=== PATIENT | male | born 1960 | race Caucasian/White ===

== ENCOUNTER 2018-04-11 18:58 | Emergency (ER) | payer SELFPAY ==
[2018-04-11 19:26] VITALS: TEMP 98.3; BMI 28.5
--- NOTE | 2018-04-11 19:57 | PDOC ---
History of Present Illness - General Chief Complaint: Blood Pressure Problem Stated Complaint: HYPERTENSION Time Seen by Provider: 04/11/18 19:13 - History of Present Illness Initial Comments: 04/11/18 19:52 57 yo M with h/o anxiety, HTN chronic back painEtoH dependence ( recent completion of detox for alcoholism at [facility]) in rehab transferred to [facility] today. Pt has history of . Patient has not taken Enalapril 20mg for BP x 2 days. Patient BP reported to be 220/120 at outside rehab facility. Denies F/C, N/V, CP, SOB, abdominal pain, diarrhea, constipation, urinary complaints, weakness, lightheadedness, sensory changes. PMHx: as noted above ROS: as noted above SHx: Reports intermittent "off and on" alcohol use for two years. States that he typically drinkes 12 oz vodka with last drink Monday (04/09/18) at 1400. Denies tobacco or IVDA. Allergies: NKDA Past History - Past Medical History Allergies/Adverse Reactions: Allergies Allergy/AdvReac Type Severity Reaction Status Date / Time No Known Allergies Allergy Verified 04/11/18 19:03 CVA: No COPD: No HTN: Yes - Suicide/Smoking/Psychosocial Hx Smoking History: Never smoked Have you smoked in the past 12 months: No Information on smoking cessation initiated: No Hx Alcohol Use: Yes Drug/Substance Use Hx: No Substance Use Type: Alcohol Review of Systems - Review of Systems Comments:: 04/11/18 19:54 GENERAL/CONSTITUTIONAL: No fever or chills. No weakness. HEAD, EYES, EARS, NOSE AND THROAT: No change in vision. No ear pain or discharge. No sore throat. CARDIOVASCULAR: No chest pain or shortness of breath RESPIRATORY: No cough, wheezing, or hemoptysis. GASTROINTESTINAL: No nausea, vomiting, diarrhea or constipation. GENITOURINARY: No dysuria, frequency, or change in urination. MUSCULOSKELETAL: No joint or muscle swelling or pain. No neck or back pain. SKIN: No rash NEUROLOGIC: No headache, vertigo, loss of consciousness, or change in strength/ sensation. ENDOCRINE: No increased thirst. No abnormal weight change HEMATOLOGIC/LYMPHATIC: No anemia, easy bleeding, or history of blood clots. ALLERGIC/IMMUNOLOGIC: No hives or skin allergy. *Physical Exam - Vital Signs Last Vital Signs Temp Pulse Resp BP Pulse Ox 98.3 F 95 H 16 190/127 98 04/11/18 19:03 04/11/18 20:12 04/11/18 20:10 04/11/18 20:11 04/11/18 20:12 - Physical Exam Comments: 04/11/18 19:54 GENERAL: Awake, alert, and fully oriented, in no acute distress HEAD: No signs of trauma, normocephalic, atraumatic EYES: PERRLA, EOMI, sclera anicteric, conjunctiva clear ENT: Auricles normal inspection, hearing grossly normal, nares patent, oropharynx clear without exudates. Moist mucosa NECK: Normal ROM, supple, no lymphadenopathy, JVD, or masses LUNGS: Diffuse scant exp rhonci. HEART: Regular rate and rhythm, normal S1 and S2, no murmurs, rubs or gallops, peripheral pulses normal and equal bilaterally. ABDOMEN: Soft, nontender, normoactive bowel sounds. No guarding, no rebound. No masses EXTREMITIES : Normal inspection, Normal range of motion, no edema. No clubbing or cyanosis. NEUROLOGICAL: Cranial nerves II through XII grossly intact. Normal speech, normal gait, no focal sensorimotor deficits SKIN: Warm, Dry, normal turgor, no rashes or lesions noted ED Treatment Course - LABORATORY CBC & Chemistry Diagram: 04/11/18 20:30 04/11/18 20:30 - ADDITIONAL ORDERS Additional order review: Laboratory Results 04/11/18 04/11/18 04/11/18 20:30 20:30 20:30 PT with INR INR Sodium 140 Potassium 3.5 Chloride 103 Carbon Dioxide 28 Anion Gap 9 BUN 13 Creatinine 1.0 Creat Clearance w eGFR > 60 Random Glucose 93 Calcium 8.6 Total Bilirubin 0.3 AST 49 H ALT 40 Alkaline Phosphatase 108 Creatine Kinase Troponin I Total Protein 7.8 Albumin 4.3 Urine Color Straw Urine Appearance Clear Urine pH 6.0 Ur Specific [place] 1.014 Urine Protein Negative Urine Glucose (UA) 1+ H Urine Ketones Negative Urine Blood Negative Urine Nitrite Negative Urine Bilirubin Negative Urine Urobilinogen Negative Ur Leukocyte Esterase Negative Opiates Screen Negative Methadone Screen Negative Barbiturate Screen Negative Phencyclidine Screen Negative Ur Amphetamines Screen Negative MDMA (Ecstasy) Screen Negative Benzodiazepines Screen Positive Cocaine Screen Positive U Marijuana (THC) Screen Negative 04/11/18 04/11/18 20:30 20:30 PT with INR 11.90 INR 1.05 Sodium Potassium Chloride Carbon Dioxide Anion Gap BUN Creatinine Creat Clearance w eGFR Random Glucose Calcium Total Bilirubin AST ALT Alkaline Phosphatase Creatine Kinase 134 Troponin I < 0.02 Total Protein Albumin Urine Color Urine Appearance Urine pH Ur Specific [place] Urine Protein Urine Glucose (UA) Urine Ketones Urine Blood Urine Nitrite Urine Bilirubin Urine Urobilinogen Ur Leukocyte Esterase Opiates Screen Methadone Screen Barbiturate Screen Phencyclidine Screen Ur Amphetamines Screen MDMA (Ecstasy) Screen Benzodiazepines Screen Cocaine Screen U Marijuana (THC) Screen 04/11/18 20:30 RBC 4.10 MCV 93.8 MCHC 34.6 RDW 14.1 MPV 7.4 L Neutrophils % 72.7 Lymphocytes % 16.3 Monocytes % 9.4 Eosinophils % 0.8 Basophils % 0.8 - RADIOLOGY Radiology Studies Ordered: Category Date Time Status CXRPORT [CHEST X-RAY PORTABLE*] [RAD] Stat Radiology 04/11/18 20:03 Completed - Medications Given in the ED: ED Medications Discontinued Medications Generic Name Dose Route Start Last Admin Trade Name Freq PRN Reason Stop Dose Admin Diazepam 10 mg 04/11/18 21:26 04/11/18 21:33 Valium - PO 04/11/18 21:27 10 mg ONCE ONE Administration Enalapril Maleate 20 mg 04/11/18 20:14 04/11/18 20:48 Vasotec - PO 04/11/18 20:15 20 mg ONCE ONE Administration Labetalol HCl 10 mg 04/11/18 20:29 04/11/18 20:41 Normodyne Injection - IVPUSH 04/11/18 20:30 10 mg ONCE ONE Administration Labetalol HCl 10 mg 04/11/18 20:40 04/11/18 20:49 Normodyne Injection - IVPUSH 04/11/18 20:41 Not Given ONCE ONE Medical Decision Making - Medical Decision Making 04/11/18 20:15 57 yo M with h/o anxiety, HTN chronic back painEtoH dependence ( recent completion of detox for alcoholism at [facility]) in rehab transferred to [facility] for report of BP 220/120 at outside rehab facility. BP now 164/132, AF. Patient with no complaints. Low suspicion of end organ damage/dysfunction. Low suspicion of HTN emergency. Will assess for electrolyte abnml, toxic or metabolic derangements,acid-base disturbances, or underlying infection. ED Course: 04/11/18 21:27 CBC,CMP, UA: Unremarkable Labetalol 10 mg SBP continually 190's. Enalapril 20 mg Valium 10 mg PO 04/11/18 22:07 EKG: Sinus tachycardia with minimal voltage criteria. Absent SAVAGE, SRD, or TWI 04/11/18 22:21 Cocaine and Benzo +. *DC/Admit/Observation/Transfer Diagnosis at time of Disposition: Asymptomatic hypertension - Discharge Dispostion Condition at time of disposition: Stable Decision to Admit order: No - Referrals - Patient Instructions Printed Discharge Instructions: DI for High Blood Pressure Additional Instructions: Please return to the emergency department with any new or worsening symptoms or concerns. Please follow up with your primary care physician within 72 hours. - Post Discharge Activity - Attestations Physician Attestion: 04/11/18 19:57 I attest to the information provided in this note.
--- NOTE | 2018-04-11 20:06 | PDOC ---
Attending Attestation - HPI HPI: 04/11/18 20:21 The patient is a 57 year old male, with a significant past medical history of HTN, anxiety, chronic back pain and ETOH dependence (recent completion of detox for alcoholism at [facility]) in rehab transferred to [facility] today, who presents to the emergency department complaining of elevated blood pressure. At rehab facility blood pressure was 220/120. He notes that he has not taken his Enalapril 20mg for the past couple of days. The patient denies chest pain, shortness of breath, headache or dizziness. Denies fever, chills, nausea, vomiting, diarrhea and constipation. Denies dysuria, frequency, urgency and hematuria. Allergies: None Past surgical history: None reported Social History: Alcohol abuse (12 oz vodkda daily, last drink 04/09/18) - Physicial Exam PE: 04/11/18 20:21 Constitutional: (+) Anxious. Awake, alert, oriented. No acute distress. Head: Normocephalic. Atraumatic Eyes: PERRL. EOMI. Conjunctivae are not pale. ENT: Mucous membranes are moist and intact. Posterior pharynx without exudates or erythema. Uvula midline. Neck: Supple. Full ROM. No lymphadenopathy. Cardiovascular: (+) Hypertensive. Regular rate. Regular rhythm. S1, S2 regular. Distal pulses are 2+ and symmetric. Pulmonary/Chest: No evidence of respiratory distress. Abdominal: Soft and non-distended. There is no tenderness. No rebound, guarding or rigidity. No organomegaly. No palpable masses. Good bowel sounds. Back: No CVA tenderness. Musculoskeletal: No edema. No cyanosis. No clubbing. Full range of motion in all extremities. Nocalf tenderness. Radial/pedal pulses are intact and 2+ bilaterally Skin: Skin is warm and dry. No petechiae. No purpura. Neurological: Alert and oriented to person, place, and time. Cranial nerves II -XII are grossly intact. Normal speech. Strength is grossly symmetric. No sensory deficits. Psychiatric: Good eye contact. Normal interaction, affect and behavior. <Connor Aguirre - Last Filed: 04/11/18 21:31> - Resident Resident Name: Benedict Ching - ED Attending Attestation I have performed the following: I have examined & evaluated the patient, The case was reviewed & discussed with the resident, I agree w/resident's findings & plan, Exceptions are as noted - Medical Decision Making 04/11/18 20:06 I, Dr. Loli Simeon, DO, attest that this document has been prepared under my direction and personally reviewed by me in its entirety. I further attest, that it accurately reflects all work, treatment, procedures and medical decision -making performed by me. 04/11/18 21:47 a/p: 57yo male sent from [facility] for elevated BP -pt admits to feeling anxious -finished detox at [facility] and transferred to [facility] for rehab -denies feeling tremulous, states he did not receive his BP meds at [facility] for the last 3 days -states he takes enalapril orally -denies drug use, denies cocaine use -denies xavier, blurred vision, neck pain, cp/sob, no abd pain, no paresthesias, no weakness, no numbness/tingling -will check labs, ekg -will give IV labetalol, oral enalapril, will monitor pressure and reassess 04/11/18 22:21 drug screen shows +cocaine pt still is denying cocaine use will no longer give beta blockers 04/11/18 23:42 repeat bp 174/93 pt sleeping will monitor another hour, if bp continues to lower will d/c back to rehab, if bp elevates again will keep in obs for BP control 04/12/18 01:53 repeat BP 154/94 labs reviewed stable for d/c back to rehab <Loli Simeon - Last Filed: 04/12/18 01:53>
[2018-04-11] MEDS ORDERED: ENALAPRIL MALEATE 10 MG TABLET (FP) PO ONE (20:14)
[2018-04-11] MEDS ORDERED: LABETALOL HCL 5 MG/1 ML (100MG/20 ML VIAL) IVPUSH ONE ×2 (20:29→20:40)
[2018-04-11] MEDS ORDERED: LABETALOL HCL 5 MG/1 ML (200MG/40ML VIAL) IVPB ONE (20:31)
[2018-04-11 20:41] LABS: BASO % 0.8 % (0-2.0); EOS % 0.8 % (0-4.5); HEMATOCRIT 38.4 % (35.4-49); HEMOGLOBIN 13.3 GM/dL (11.7-16.9); LYMPH % 16.3 % (8-40); MCH 32.5 pg (25.7-33.7); MCHC 34.6 g/dl (32.0-35.9); MEAN CELL VOLUME 93.8 fl (80-96); MEAN PLT VOLUME 7.4 fl (7.5-11.1); MONO % 9.4 % (3.8-10.2); NEUT % 72.7 % (42.8-82.8); PLATELET COUNT 222 K/MM3 (134-434); RDW 14.1 % (11.9-15.9)
[2018-04-11 20:42] LABS: URINE APPEARANCE CLEAR; URINE BILIRUBIN NEGATIVE (<2.0 mg/dL); URINE BLOOD NEGATIVE (NEGATIVE); URINE COLOR STRAW; URINE GLUCOSE (UA) 1+ (NEGATIVE); URINE KETONE NEGATIVE (NEGATIVE); URINE LEUK ESTERASE NEGATIVE (NEGATIVE); URINE NITRITE NEGATIVE (NEGATIVE); URINE PROTEIN NEGATIVE (NEGATIVE); URINE UROBILINOGEN NEGATIVE mg/dL (0.2-1.0)
[2018-04-11] MEDS ORDERED: ENALAPRIL MALEATE 5 MG TABLET (FP) ONE (20:42)
[2018-04-11 21:08] LABS: INR 1.05 (0.82-1.09); PROTHROMBIN TIME (PATIENT) 11.9 SEC (9.7-13.0)
[2018-04-11 21:18] LABS: ALBUMIN 4.3 g/dl (3.4-5.0); ANION GAP 9 (8-16); BILIRUBIN,TOTAL 0.3 mg/dL (0.2-1.0); BLOOD UREA NITROGEN 13 mg/dL (7-18); CALCIUM 8.6 mg/dL (8.5-10.1); CHLORIDE 103 mmol/L (98-107); CO2 28 mmol/L (21-32); GLUCOSE,RANDOM 93 mg/dL (74-106); POTASSIUM 3.5 mmol/L (3.5-5.1); SGOT/AST 49 U/L (15-37); SGPT/ALT 40 U/L (12-78); SODIUM 140 mmol/L (136-145); TOT PROT 7.8 g/dl (6.4-8.2)
[2018-04-11 21:19] LABS: ALK PHOS 108 U/L (45-117)
[2018-04-11] MEDS ORDERED: diazePAM 5 MG TABLET PO ONE (21:26)
[2018-04-11] MEDS ORDERED: diazePAM 5 MG TABLET ONE (21:28)
[2018-04-11 22:14] LABS: URINE AMPHETAMINES NEGATIVE ng/ml (CUTOFF=500); URINE BARBITURATES NEGATIVE ng/ml (CUTOFF=200)
[2018-04-11] MEDS ORDERED: amLODIPine BESYLATE 5 MG TABLET (FP) ONE (22:14)
[2018-04-11 22:15] LABS: METHADONE, UR NEGATIVE ng/ml (CUTOFF=300); OPIATES, URI NEGATIVE ng/ml (CUTOFF=300); PHENCYCLIDINE,URINE NEGATIVE ng/ml (CUTOFF=25)
[2018-04-11 22:16] LABS: COCAINE, UR POSITIVE ng/ml (CUTOFF=300); URINE BENZODIAZEPINES POSITIVE ng/ml (CUTOFF=200)
[2018-04-11] MEDS ORDERED: amLODIPine BESYLATE 5 MG TABLET (FP) PO ONE (22:22)
[2018-04-11] MEDS ORDERED: hydrALAZINE HCL 20 MG/ML VIAL IVPUSH ONE (22:23)
[2018-04-11] MEDS ORDERED: hydrALAZINE HCL 20 MG/ML VIAL ONE (22:26)
[2018-04-12 00:47] VITALS: BP 169/94; PULSE 96
--- NOTE | 2018-04-12 01:14 | PDOC ---
History of Present Illness - General Chief Complaint: Blood Pressure Problem Stated Complaint: HYPERTENSION Time Seen by Provider: 04/11/18 19:13 Past History - Past Medical History Allergies/Adverse Reactions: Allergies Allergy/AdvReac Type Severity Reaction Status Date / Time No Known Allergies Allergy Verified 04/11/18 19:03 CVA: No COPD: No HTN: Yes - Suicide/Smoking/Psychosocial Hx Smoking History: Never smoked Have you smoked in the past 12 months: No Information on smoking cessation initiated: No Hx Alcohol Use: Yes Drug/Substance Use Hx: No Substance Use Type: Alcohol *Physical Exam - Vital Signs Last Vital Signs Temp Pulse Resp BP Pulse Ox 98.3 F 96 H 16 169/94 100 04/11/18 19:03 04/12/18 00:46 04/12/18 00:46 04/12/18 00:46 04/12/18 00:46 ED Treatment Course - LABORATORY CBC & Chemistry Diagram: 04/11/18 20:30 04/11/18 20:30 - ADDITIONAL ORDERS Additional order review: Laboratory Results 04/11/18 04/11/18 04/11/18 20:30 20:30 20:30 PT with INR INR Sodium 140 Potassium 3.5 Chloride 103 Carbon Dioxide 28 Anion Gap 9 BUN 13 Creatinine 1.0 Creat Clearance w eGFR > 60 Random Glucose 93 Calcium 8.6 Total Bilirubin 0.3 AST 49 H ALT 40 Alkaline Phosphatase 108 Creatine Kinase Troponin I Total Protein 7.8 Albumin 4.3 Urine Color Straw Urine Appearance Clear Urine pH 6.0 Ur Specific [place] 1.014 Urine Protein Negative Urine Glucose (UA) 1+ H Urine Ketones Negative Urine Blood Negative Urine Nitrite Negative Urine Bilirubin Negative Urine Urobilinogen Negative Ur Leukocyte Esterase Negative Opiates Screen Negative Methadone Screen Negative Barbiturate Screen Negative Phencyclidine Screen Negative Ur Amphetamines Screen Negative MDMA (Ecstasy) Screen Negative Benzodiazepines Screen Positive Cocaine Screen Positive U Marijuana (THC) Screen Negative 04/11/18 04/11/18 20:30 20:30 PT with INR 11.90 INR 1.05 Sodium Potassium Chloride Carbon Dioxide Anion Gap BUN Creatinine Creat Clearance w eGFR Random Glucose Calcium Total Bilirubin AST ALT Alkaline Phosphatase Creatine Kinase 134 Troponin I < 0.02 Total Protein Albumin Urine Color Urine Appearance Urine pH Ur Specific [place] Urine Protein Urine Glucose (UA) Urine Ketones Urine Blood Urine Nitrite Urine Bilirubin Urine Urobilinogen Ur Leukocyte Esterase Opiates Screen Methadone Screen Barbiturate Screen Phencyclidine Screen Ur Amphetamines Screen MDMA (Ecstasy) Screen Benzodiazepines Screen Cocaine Screen U Marijuana (THC) Screen 04/11/18 20:30 RBC 4.10 MCV 93.8 MCHC 34.6 RDW 14.1 MPV 7.4 L Neutrophils % 72.7 Lymphocytes % 16.3 Monocytes % 9.4 Eosinophils % 0.8 Basophils % 0.8 - Medications Given in the ED: ED Medications Discontinued Medications Generic Name Dose Route Start Last Admin Trade Name Sincere PRN Reason Stop Dose Admin Amlodipine Besylate 5 mg 04/11/18 22:22 04/11/18 22:23 Norvasc - PO 04/11/18 22:23 5 mg ONCE ONE Administration Diazepam 10 mg 04/11/18 21:26 04/11/18 21:33 Valium - PO 04/11/18 21:27 10 mg ONCE ONE Administration Enalapril Maleate 20 mg 04/11/18 20:14 04/11/18 20:48 Vasotec - PO 04/11/18 20:15 20 mg ONCE ONE Administration Hydralazine HCl 10 mg 04/11/18 22:23 04/11/18 22:35 Apresoline Injection - IVPUSH 04/11/18 22:24 10 mg ONCE ONE Administration Labetalol HCl 10 mg 04/11/18 20:29 04/11/18 20:41 Normodyne Injection - IVPUSH 04/11/18 20:30 10 mg ONCE ONE Administration Labetalol HCl 10 mg 04/11/18 20:40 04/11/18 20:49 Normodyne Injection - IVPUSH 04/11/18 20:41 Not Given ONCE ONE *DC/Admit/Observation/Transfer Diagnosis at time of Disposition: Asymptomatic hypertension - Discharge Dispostion Disposition: HOME Condition at time of disposition: Stable Decision to Admit order: No - Referrals - Patient Instructions Printed Discharge Instructions: DI for High Blood Pressure Additional Instructions: Please return to the emergency department with any new or worsening symptoms or concerns. Please follow up with your primary care physician within 72 hours. Continue your rehab treatment at [facility]. - Post Discharge Activity
--- NOTE | 2018-04-12 11:27 | EKG ---
Test Reason : Blood Pressure : / mmHG Vent. Rate : 101 BPM Atrial Rate : 101 BPM P-R Int : 176 ms QRS Dur : 090 ms QT Int : 386 ms P-R-T Axes : 022 -19 -04 degrees QTc Int : 500 ms SINUS TACHYCARDIA MINIMAL VOLTAGE CRITERIA FOR LVH, MAY BE NORMAL VARIANT BORDERLINE ECG NO PREVIOUS ECGS AVAILABLE Confirmed by MARTÍN GARZON MD ([id number]) on 04/12/2018 11:26:40 AM Referred By: Confirmed By:MARTÍN GARZON MD
== END 2018-04-12 01:26 | disposition home or self-care (01) ==
LOC: JER 18:58
PROC: 3E033GC Introduction of Other Therapeutic Substance into Peripheral Vein, Percutaneous Approach (ICD-10-PCS; principal; 2018-04-11)
DX: I10 Essential (primary) hypertension (principal)
CPT/HCPCS: 36415; 71045-TC-FY; 80053; 80307; 81003; 82550; 84484; 85025; 85610; 93005; 93010; 99282-25

== ENCOUNTER 2018-04-12 02:16 | Inpatient (IN) | payer OTHER ==
--- NOTE | 2018-04-12 02:22 | HP ---
Admission [facility] Chief Complaint: SEEKING REHAB TO MAINTAIN SOBRIETY Allergies/Adverse Reactions: Allergies Allergy/AdvReac Type Severity Reaction Status Date / Time No Known Allergies Allergy Verified 04/11/18 19:03 History of Present Illness: 57 Y.O. MALE WITH HX/ O ALCOHOLISM. Patient presents for rehab services after completing detox for alcoholism at [facility]. Transferred to [facility] yesterday for asymptomatic htn. Her has been stabilized and medically cleared. Pt has history of anxiety, HTN and chronic back pain, rheumatoid arthritis, psoriatic arthritis, gout.b/p presently 164/104 p-99 Patient denies chest pain, SOB, headache and dizziness. client states he is on Enalapril 20mg daily but has not taken it in days. longest clean time 7 years. denies hx/o seizures, dt,and a/v but has had black outs. utox + oxy and faina client adamantly denies use labs from [facility] noted cxr noted - ADDITIONAL ORDERS Additional order review: Laboratory Results 04/11/18 04/11/18 04/11/18 20:30 20:30 20:30 PT with INR INR Sodium 140 Potassium 3.5 Chloride 103 Carbon Dioxide 28 Anion Gap 9 BUN 13 Creatinine 1.0 Creat Clearance w eGFR > 60 Random Glucose 93 Calcium 8.6 Total Bilirubin 0.3 AST 49 H ALT 40 Alkaline Phosphatase 108 Creatine Kinase Troponin I Total Protein 7.8 Albumin 4.3 Urine Color Straw Urine Appearance Clear Urine pH 6.0 Ur Specific [place] 1.014 Urine Protein Negative Urine Glucose (UA) 1+ H Urine Ketones Negative Urine Blood Negative Urine Nitrite Negative Urine Bilirubin Negative Urine Urobilinogen Negative Ur Leukocyte Esterase Negative Opiates Screen Negative Methadone Screen Negative Barbiturate Screen Negative Phencyclidine Screen Negative Ur Amphetamines Screen Negative MDMA (Ecstasy) Screen Negative Benzodiazepines Screen Positive Cocaine Screen Positive U Marijuana (THC) Screen Negative 04/11/18 04/11/18 20:30 20:30 PT with INR 11.90 INR 1.05 Sodium Potassium Chloride Carbon Dioxide Anion Gap BUN Creatinine Creat Clearance w eGFR Random Glucose Calcium Total Bilirubin AST ALT Alkaline Phosphatase Creatine Kinase 134 Troponin I < 0.02 Total Protein Albumin Urine Color Urine Appearance Urine pH Ur Specific [place] Urine Protein Urine Glucose (UA) Urine Ketones Urine Blood Urine Nitrite Urine Bilirubin Urine Urobilinogen Ur Leukocyte Esterase Opiates Screen Methadone Screen Barbiturate Screen Phencyclidine Screen Ur Amphetamines Screen MDMA (Ecstasy) Screen Benzodiazepines Screen Cocaine Screen U Marijuana (THC) Screen 04/11/18 20:30 RBC 4.10 MCV 93.8 MCHC 34.6 RDW 14.1 MPV 7.4 L Neutrophils % 72.7 Lymphocytes % 16.3 Monocytes % 9.4 Eosinophils % 0.8 Basophils % 0.8 - Medications Given in the ED: ED Medications Discontinued Medications Generic Name Dose Route Start Last Admin Trade Name Sincere PRN Reason Stop Dose Admin Amlodipine Besylate 5 mg 04/11/18 22:22 04/11/18 22:23 Norvasc - PO 04/11/18 22:23 5 mg ONCE ONE Administration Diazepam 10 mg 04/11/18 21:26 04/11/18 21:33 Valium - PO 04/11/18 21:27 10 mg ONCE ONE Administration Enalapril Maleate 20 mg 04/11/18 20:14 04/11/18 20:48 Vasotec - PO 04/11/18 20:15 20 mg ONCE ONE Administration Hydralazine HCl 10 mg 04/11/18 22:23 04/11/18 22:35 Apresoline Injection - IVPUSH 04/11/18 22:24 10 mg ONCE ONE Administration Labetalol HCl 10 mg 04/11/18 20:29 04/11/18 20:41 Normodyne Injection - IVPUSH 04/11/18 20:30 10 mg ONCE ONE Administration Labetalol HCl 10 mg 04/11/18 20:40 04/11/18 20:49 Normodyne Injection - IVPUSH 04/11/18 20:41 Not Given ONCE ONE *DC/Admit/Observation/Transfer Diagnosis at time of Disposition: Asymptomatic hypertension - Discharge Dispostion Disposition: HOME Condition at time of disposition: Stable Decision to Admit order: No - Referrals - Patient Instructions Printed Discharge Instructions: DI for High Blood Pressure Additional Instructions: Please return to the emergency department with any new or worsening symptoms or concerns. Please follow up with your primary care physician within 72 hours. Continue your rehab treatment at [facility]. - Post Discharge Activity Exam Limitations: No Limitations, Other (poor historian. giving conflicting information) - Ebola screening Have you traveled outside of the country in the last 21 days: No Have you had contact with anyone from an Ebola affected area: No Have you been sick,other than usual withdrawal symptoms: No Do you have a fever: No - Review of Systems Constitutional: No Symptoms Reported EENT: reports: No Symptoms Reported Respiratory: reports: No Symptoms reported Cardiac: reports: No Symptoms Reported GI: reports: No Symptoms Reported : reports: No Symptoms Reported Musculoskeletal: reports: Joint Pain Integumentary: reports: No Symptoms Reported Neuro: reports: No Symptoms reported Endocrine: reports: No Symptoms Reported Hematology: reports: No Symptoms Reported Psychiatric: reports: Anxious Other Systems: Reviewed and Negative Patient History - Patient Medical History Hx Anemia: No Hx Asthma: No Hx Chronic Obstructive Pulmonary Disease (COPD): No Hx Cancer: No Hx Cardiac Disorders: No Hx Congestive Heart Failure: No Hx Hypertension: Yes Hx Hypercholesterolemia: No Hx Pacemaker: No HX Cerebrovascular Accident: No Hx Seizures: No Hx Dementia: No Hx Diabetes: No Hx Gastrointestinal Disorders: No Hx Liver Disease: No Hx Genitourinary Disorders: No Hx Sexually Transmitted Disorders: No Hx Renal Disease (ESRD): No Hx Thyroid Disease: No Hx Human Immunodeficiency Virus (HIV): No Hx Hepatitis C: No Hx Depression: Yes Hx Suicide Attempt: No Hx Bipolar Disorder: No Hx Schizophrenia: No Other Medical History: anxiety, gout, psoriaTIC ARTHRITIS - Patient Surgical History Past Surgical History: No - PPD History Previous Implant?: Yes Documented Results: Negative w/o proof Implanted On Prior [facility] Admission?: No Results: neg cxr noted PPD to be Administered?: No - Smoking Cessation Smoking history: Never smoked Have you smoked in the past 12 months: No Hx Chewing Tobacco Use: No Initiated information on smoking cessation: No - Substance & Tx. History Hx Alcohol Use: Yes Substance Use Type: Alcohol, Cocaine (denies) Hx Substance Use Treatment: Yes ([facility]) - Substances Abused VODKA Route: Oral Frequency: 3-6 times per week Amount used: 8-12 oz Age of first use: 55 Date of Last Use: 04/09/18 Family Disease History - Family Disease History Family History: Denies Admission Physical Exam [facility] - Physical General Appearance: Yes: Appropriately Dressed, Anxious, Other (talkative) HEENTM: Yes: EOMI, Normocephalic, Normal Voice, SHANELLE, Pharynx Normal Respiratory: Yes: Chest Non-Tender, Lungs Clear, Normal Breath Sounds, No Respiratory Distress, No Accessory Muscle Use Neck: Yes: No masses,lesions,Nodules, Supple, Trachea in good position Breast: Yes: Breast Exam Deferred Cardiology: Yes: Regular Rhythm, Regular Rate, S1, S2 Abdominal: Yes: Normal Bowel Sounds, Non Tender, Flat, Soft Genitourinary: Yes: Within Normal Limits Back: Yes: Normal Inspection Musculoskeletal: Yes: Within Normal Limits Extremities: Yes: Normal Capillary Refill, Normal Range of Motion, Non-Tender Neurological: Yes: Alert, Motor Strength 5/5 Integumentary: Yes: Normal Color, Dry, Warm Lymphatic: Yes: Within Normal Limits - Diagnostic (1) Uncomplicated alcohol dependence Current Visit: Yes Status: Chronic (2) HTN (hypertension) Current Visit: Yes Status: Chronic (3) History of rheumatoid arthritis Current Visit: Yes Status: Chronic (4) History of gout Current Visit: Yes Status: Chronic (5) History of psoriatic arthritis Current Visit: Yes Status: Chronic (6) Chronic back pain Current Visit: Yes Status: Chronic (7) History of depression Current Visit: Yes Status: Chronic Cleared for Admission [facility] - Detox or Rehab Detox Regimen/Protocol: Not Applicable Claeared for Rehab Admission: Yes [facility] Breath Alcohol Content Breath Alcohol Content: 0 Vital Signs - Vital Signs Vital Signs Refused: No Temperature: 97.5 F Temperature Source: Oral Pulse Rate: 99 Respiratory Rate: 20 Blood Pressure: 164/104 BP Location: Left Arm Blood Pressure Position: Sitting - Height Height: 6 ft - Weight Weight: 91.172 kg Weight Measurement Method: Standing Scale Body Mass Index (BMI): 27.2 - Bowel Function Bowel Movement: No Urine Drug Screen - Test Device Lot Number: [id number] Expiration Date: 01/03/20 - Control Is Test Valid: Yes - Results Drug Screen Negative: No Urine Drug Screen Results: FAINA-Cocaine, BZO-Benzodiazepines, TCA-Tricyclic Antidepress, OXY-Oxycodone Inpatient Rehab Admission - Initial Determination Are CD services needed?: Yes Free of communicable disease: Yes Not in need of hospitalization: Yes - Rehab Admission Criteria Previous failed treatment: Yes Poor recovery environment: Yes Comorbidities: Yes Lacks judgement: Yes Patient is meeting Inpatient Rehab admission criteria:: Yes
[2018-04-12 02:29] VITALS: BMI 27.2
[2018-04-12] MEDS ORDERED: P-EPHED 60MG/TRIPROLIDI 2.5MG TABLET PO PRN (02:53)
[2018-04-12] MEDS ORDERED: MAGNESIUM CITRATE 300 ML BOTTLE PO PRN (02:53)
[2018-04-12] MEDS ORDERED: ACETAMINOPHEN 325 MG TABLET (FP) PO PRN (02:53)
[2018-04-12] MEDS ORDERED: LOPERAMIDE HCL 2 MG CAPSULE PO PRN (02:53)
[2018-04-12] MEDS ORDERED: guaiFENesin/D-METHORPHAN HB 10 ML UNIT-DOSE CUPS PO PRN (02:53)
[2018-04-12] MEDS ORDERED: MAGNESIUM HYDROX 2400MG/30ML ORAL SUSPENSION 30 ML CUP PO PRN (02:53)
[2018-04-12] MEDS: hydrOXYzine PAMOATE 50 MG CAPSULE (FP) PO PRN ×2 (03:00→21:37)
[2018-04-12] MEDS ORDERED: cloNIDine HCL 0.1 MG TABLET PO ONE (03:33)
--- NOTE | 2018-04-12 07:03 | PN ---
S Progress Note Note: late entry clonidine 0.2 mg given for asymptomatic elevated b/p Last Vital Signs Temp Pulse Resp BP Pulse Ox 98.2 F 102 H 18 175/134 04/12/18 03:55 04/12/18 03:55 04/12/18 03:55 04/12/18 03:55 repeat b/p this morning 131/83 p-77 restarted on home med enalapril; first dose 10am
[2018-04-12] MEDS: ENALAPRIL MALEATE 10 MG TABLET (FP) PO SCH (09:54)
[2018-04-12] MEDS: PRENATAL VITAMINS W/ FOLIC ACID TABLET (FP) PO SCH (09:56)
--- NOTE | 2018-04-12 11:23 | HP ---
Psychiatrist Admission - Data Date of interview: 04/12/18 Admission source: [facility] detox Identifying data: This is the first [facility] inpatient rehabilitation admission for this 57 years old male, father of 3 children, unemployed on SSD, domiciled Medical History: Significant for hypertension, chronic back pain, rheumatoid arthritis, psoriatic arthritis , gout. Psychiatric History: Denies history of previous psychiatric treatment Physical/Sexual Abuse/Trauma History: Denies history of emotional, physical or sexual abuse as well as DV relationship. No service Additional Comment: reports history one previous misdemeanor arrests years ago on charges of [employer] Vital Signs: Vital Signs - 24 hr 04/12/18 04/12/18 04/12/18 03:20 03:55 07:24 Temperature 97.5 F L 98.2 F 98.7 F Pulse Rate 99 H 102 H 77 Respiratory 20 18 18 Rate Blood Pressure 164/104 175/134 131/83 Allergies/Adverse Reactions: Allergies Allergy/AdvReac Type Severity Reaction Status Date / Time No Known Allergies Allergy Verified 04/11/18 19:03 Date of last physical exam: 04/12/18 Concur with the findings of this exam: Yes - Substance Abuse/Tx History Hx Alcohol Use: Yes Hx Substance Use: No Substance Use Type: Alcohol (Started drinking alcohol at age 55, consumes 8x 12oz of vodka 3-6 times weekly. Last drank on 04/09/18) Hx Substance Use Treatment: Yes (one recent inpt detox [facility]. First time inpt rehab) Mental Status Exam - Mental Status Exam Alert and Oriented to: Time, Place, Person Cognitive Function: Fair Patient Appearance: Well Groomed Mood: Anxious Affect: Appropriate Patient Behavior: Cooperative Speech Pattern: Clear Voice Loudness: Normal Thought Process: Intact, Goal Oriented Thought Disorder: Not Present Hallucinations: Denies Suicidal Ideation: Denies Homicidal Ideation: Denies Insight/Judgement: Fair Sleep: Poorly Appetite: Good Muscle strength/Tone: Normal Gait/Station: Normal Psychiatric Findings - Problem List ([place] 1, 2,3) (1) Alcohol dependence Current Visit: Yes Status: Acute (2) Alcohol-induced sleep disorder Current Visit: Yes Status: Acute (3) Alcohol-induced anxiety disorder Current Visit: Yes Status: Acute (4) Chronic back pain Current Visit: Yes Status: Chronic (5) HTN (hypertension) Current Visit: Yes Status: Chronic (6) History of gout Current Visit: Yes Status: Chronic (7) History of psoriatic arthritis Current Visit: Yes Status: Chronic - Initial Treatment Plan Initial Treatment Plan: 1) Start Melatonin 5 mg po HS prn for insomnia. 2) Monitor progress
--- NOTE | 2018-04-12 11:42 | EKG ---
Test Reason : Blood Pressure : / mmHG Vent. Rate : 098 BPM Atrial Rate : 098 BPM P-R Int : 184 ms QRS Dur : 076 ms QT Int : 370 ms P-R-T Axes : 051 003 003 degrees QTc Int : 472 ms POOR DATA QUALITY, INTERPRETATION MAY BE ADVERSELY AFFECTED NORMAL SINUS RHYTHM POSSIBLE LEFT ATRIAL ENLARGEMENT BORDERLINE ECG WHEN COMPARED WITH ECG OF 11-APR-2018 20:20, NO SIGNIFICANT CHANGE WAS FOUND Confirmed by DURAN LOBATO, MARTÍN ([id number]) on 04/12/2018 11:41:41 AM Referred By: Confirmed By:MARTÍN GARZON MD
[2018-04-12] MEDS ORDERED: PANTOPRAZOLE 20 MG TABLET (FP) PO SCH (12:45)
--- NOTE | 2018-04-12 12:46 | PN ---
S Progress Note Note: Reports taking prilosec out patient for reflux and medications for gout. Medication hx reviewed, no hx of gout meds. Vital Signs Temperature 98.7 F 04/12/18 07:24 Pulse Rate 77 04/12/18 07:24 Respiratory Rate 18 04/12/18 07:24 Blood Pressure 131/83 04/12/18 07:24 O2 Sat by Pulse Oximetry (%) - protonix 20mg qd started - uric Acid ordered tomorrow AM. continue to monitor
[2018-04-12] MEDS: MAG HYDROX/AL HYDROX/SIMETH 30 ML UNIT-DOSE CUP PO PRN ×2 (13:38→19:42)
[2018-04-12] MEDS: IBUPROFEN 400 MG TABLET (FP) PO PRN (16:57)
[2018-04-12] MEDS: THIAMINE HCL 100 MG TABLET (FP) PO SCH (21:36)
[2018-04-12] MEDS: MELATONIN 5 MG TABLETS PO PRN (21:37)
[2018-04-12] MEDS ORDERED: PANTOPRAZOLE 20 MG TABLET (FP) PO ONE (22:00)
[2018-04-13] MEDS ORDERED: PANTOPRAZOLE 20 MG TABLET (FP) PO ONE (08:30)
[2018-04-13] MEDS: PRENATAL VITAMINS W/ FOLIC ACID TABLET (FP) PO SCH (10:17)
[2018-04-13] MEDS: ENALAPRIL MALEATE 10 MG TABLET (FP) PO SCH (10:17)
[2018-04-13] MEDS: MAG HYDROX/AL HYDROX/SIMETH 30 ML UNIT-DOSE CUP PO PRN ×3 (10:20→23:36)
[2018-04-13] MEDS ORDERED: diphenhydrAMINE HCL 50 MG CAPSULE PO PRN (14:32)
[2018-04-13] MEDS: hydrOXYzine PAMOATE 50 MG CAPSULE (FP) PO PRN ×2 (17:01→21:33)
[2018-04-13] MEDS: MELATONIN 5 MG TABLETS PO PRN (21:33)
[2018-04-13] MEDS: THIAMINE HCL 100 MG TABLET (FP) PO SCH (21:33)
[2018-04-14] MEDS ORDERED: cloNIDine HCL 0.1 MG TABLET PO ONE (00:01)
--- NOTE | 2018-04-14 00:10 | PN ---
S Progress Note Note: Patient's blood pressure is B/P 157/110. Patient is asymptomatic Vital Signs Temperature 97.6 F 04/13/18 07:09 Pulse Rate 98 H 04/14/18 00:00 Respiratory Rate 19 04/13/18 07:09 Blood Pressure 157/110 04/14/18 00:00 O2 Sat by Pulse Oximetry (%) Action: Clonidine 0.1mg tablet oral given
[2018-04-14] MEDS: MAG HYDROX/AL HYDROX/SIMETH 30 ML UNIT-DOSE CUP PO PRN (07:29)
[2018-04-14] MEDS ORDERED: PANTOPRAZOLE 20 MG TABLET (FP) PO SCH (08:00)
[2018-04-14] MEDS ORDERED: PANTOPRAZOLE 40 MG TABLET (FP) PO SCH (10:00)
[2018-04-14] MEDS: ENALAPRIL MALEATE 10 MG TABLET (FP) PO SCH ×2 (10:23→21:59)
[2018-04-14] MEDS: PRENATAL VITAMINS W/ FOLIC ACID TABLET (FP) PO SCH (10:24)
[2018-04-14] MEDS: hydrOXYzine PAMOATE 50 MG CAPSULE (FP) PO PRN ×3 (10:31→21:26)
[2018-04-14] MEDS: MELATONIN 5 MG TABLETS PO PRN (21:24)
[2018-04-14] MEDS: THIAMINE HCL 100 MG TABLET (FP) PO SCH (21:24)
[2018-04-14] MEDS: HYDROCHLOROTHIAZIDE 25 MG TABLET (FP) PO SCH (21:59)
[2018-04-14] MEDS: IBUPROFEN 400 MG TABLET (FP) PO PRN (22:20)
[2018-04-15] MEDS: PANTOPRAZOLE 40 MG TABLET (FP) PO SCH (07:45)
[2018-04-15] MEDS: ENALAPRIL MALEATE 10 MG TABLET (FP) PO SCH ×2 (10:05→21:24)
[2018-04-15] MEDS: HYDROCHLOROTHIAZIDE 25 MG TABLET (FP) PO SCH (10:05)
[2018-04-15] MEDS: PRENATAL VITAMINS W/ FOLIC ACID TABLET (FP) PO SCH (10:06)
[2018-04-15] MEDS: hydrOXYzine PAMOATE 50 MG CAPSULE (FP) PO PRN ×3 (10:06→21:23)
[2018-04-15] MEDS: MELATONIN 5 MG TABLETS PO PRN (21:23)
[2018-04-15] MEDS: THIAMINE HCL 100 MG TABLET (FP) PO SCH (21:23)
[2018-04-15 23:20] LABS: URINE APPEARANCE CLEAR; URINE BILIRUBIN NEGATIVE (<2.0 mg/dL); URINE COLOR STRAW; URINE GLUCOSE (UA) NEGATIVE (NEGATIVE); URINE KETONE NEGATIVE (NEGATIVE); URINE LEUK ESTERASE NEGATIVE (NEGATIVE); URINE NITRITE NEGATIVE (NEGATIVE); URINE PROTEIN NEGATIVE (NEGATIVE); URINE UROBILINOGEN NEGATIVE mg/dL (0.2-1.0)
[2018-04-16] MEDS: hydrOXYzine PAMOATE 50 MG CAPSULE (FP) PO PRN ×3 (01:51→21:41)
[2018-04-16] MEDS: PANTOPRAZOLE 40 MG TABLET (FP) PO SCH (06:22)
[2018-04-16] MEDS: PRENATAL VITAMINS W/ FOLIC ACID TABLET (FP) PO SCH (10:14)
[2018-04-16] MEDS: ENALAPRIL MALEATE 10 MG TABLET (FP) PO SCH ×2 (10:14→21:40)
[2018-04-16] MEDS: HYDROCHLOROTHIAZIDE 25 MG TABLET (FP) PO SCH (10:14)
--- NOTE | 2018-04-16 15:04 | PN ---
[facility] Progress Note Note: Patient c/o rash to eyebrows and behind ears. Has hx of psoriasis. Vital Signs Temperature 97.6 F 04/16/18 07:22 Pulse Rate 106 H 04/16/18 10:00 Respiratory Rate 18 04/16/18 07:22 Blood Pressure 132/81 04/16/18 10:00 O2 Sat by Pulse Oximetry (%) Obj: General: alert and oriented x 3. In NAD. Skin: +macular red rash and flaking of skin around ears and eyebrows. No open areas or lesions noted. A/P; Psoriasis Will start Disolene topically BID continue to monitor clinically
[2018-04-16] MEDS: MELATONIN 5 MG TABLETS PO PRN (21:41)
[2018-04-16] MEDS: THIAMINE HCL 100 MG TABLET (FP) PO SCH (21:42)
[2018-04-16] MEDS: BETAMETHASONE DIPR 0.05% OINT 45 GM TUBE TP SCH (22:03)
[2018-04-17] MEDS: hydrOXYzine PAMOATE 50 MG CAPSULE (FP) PO PRN ×3 (01:59→21:25)
[2018-04-17] MEDS: PANTOPRAZOLE 40 MG TABLET (FP) PO SCH (06:53)
[2018-04-17] MEDS: PRENATAL VITAMINS W/ FOLIC ACID TABLET (FP) PO SCH (10:17)
[2018-04-17] MEDS: ENALAPRIL MALEATE 10 MG TABLET (FP) PO SCH ×2 (10:17→21:25)
[2018-04-17] MEDS: HYDROCHLOROTHIAZIDE 25 MG TABLET (FP) PO SCH (10:17)
[2018-04-17] MEDS: BETAMETHASONE DIPR 0.05% OINT 45 GM TUBE TP SCH ×2 (10:18→21:28)
--- NOTE | 2018-04-17 13:04 | PN ---
[facility] Progress Note Note: Patient c/o of nasal congestion, sore throat, cough worse at night. Denies SOB , CP, vertigo. Vital Signs Temperature 97.9 F 04/17/18 06:44 Pulse Rate 101 H 04/17/18 06:44 Respiratory Rate 18 04/17/18 06:44 Blood Pressure 142/93 04/17/18 06:44 O2 Sat by Pulse Oximetry (%) Laboratory Last Values Urine Color Straw 04/15/18 Unknown Urine Appearance Clear 04/15/18 Unknown Urine pH 6.0 (5.0-8.0) 04/15/18 Unknown Ur Specific [place] 1.008 (1.001-1.035) 04/15/18 Unknown Urine Protein Negative (NEGATIVE) 04/15/18 Unknown Urine Glucose (UA) Negative (NEGATIVE) 04/15/18 Unknown Urine Ketones Negative (NEGATIVE) 04/15/18 Unknown Urine Blood Negative (NEGATIVE) 04/15/18 Unknown Urine Nitrite Negative (NEGATIVE) 04/15/18 Unknown Urine Bilirubin Negative (<2.0 mg/dL) 04/15/18 Unknown Urine Urobilinogen Negative mg/dL (0.2-1.0) 04/15/18 Unknown Ur Leukocyte Esterase Negative (NEGATIVE) 04/15/18 Unknown RPR Titer Nonreactive (NONREACTIVE) 04/12/18 06:00 Chest x-ray reviewed A/P AOx3 no apparent distress + cough + b/l wheezing + rhinorrhea s1, s2, no JVD Skin intact, no erythema, or lesion full ROM, ambulating in the unit - Upper respiratory Tract infection - wheezing Plan: mucinex 600 BID PO peridex wash BID flonase qd NS tylenol PRN Albuterol IH PRN NEB PRN Increase fluids and continue to monitor
[2018-04-17] MEDS: FLUTICASONE PROP 0.05% 16 GM NASAL SPRAY NS SCH (14:07)
[2018-04-17] MEDS ORDERED: TUBERCULIN PPD 5 TU/0.1ML VIAL ID ONE (15:38)
[2018-04-17] MEDS: guaiFENesin 600 MG TABLET.ER (FP) PO SCH ×2 (15:42→21:25)
[2018-04-17] MEDS: CHLORHEXIDINE GLUCONATE 0.12% 15ML CUP MM SCH ×2 (15:43→21:27)
[2018-04-17] MEDS: THIAMINE HCL 100 MG TABLET (FP) PO SCH (21:25)
[2018-04-17] MEDS: MELATONIN 5 MG TABLETS PO PRN (21:25)
[2018-04-18] MEDS: MENTHOL/PHENOL 1 EACH UD MM PRN (02:34)
[2018-04-18] MEDS: MELATONIN 5 MG TABLETS PO PRN (04:14)
[2018-04-18] MEDS: PANTOPRAZOLE 40 MG TABLET (FP) PO SCH (06:52)
[2018-04-18] MEDS: ALBUTEROL SO4 18 GM HFA INHALER IH PRN ×2 (07:12→21:19)
[2018-04-18] MEDS: FLUTICASONE PROP 0.05% 16 GM NASAL SPRAY NS SCH (10:22)
[2018-04-18] MEDS: guaiFENesin 600 MG TABLET.ER (FP) PO SCH ×2 (10:22→23:19)
[2018-04-18] MEDS: HYDROCHLOROTHIAZIDE 25 MG TABLET (FP) PO SCH (10:22)
[2018-04-18] MEDS: ENALAPRIL MALEATE 10 MG TABLET (FP) PO SCH ×2 (10:22→21:18)
[2018-04-18] MEDS: PRENATAL VITAMINS W/ FOLIC ACID TABLET (FP) PO SCH (10:22)
[2018-04-18] MEDS: BETAMETHASONE DIPR 0.05% OINT 45 GM TUBE TP SCH ×2 (10:25→21:18)
[2018-04-18] MEDS: hydrOXYzine PAMOATE 50 MG CAPSULE (FP) PO PRN ×2 (10:28→21:18)
--- NOTE | 2018-04-18 16:00 | PN ---
Psychiatric Progress Note Vital Signs: Vital Signs Period Temp Pulse Resp BP Sys/Wren Pulse Ox Last 24 Hr 97.9 F 99-112 -18 123-156/89-92 Date of Session: 04/18/18 Chief Complaint:: "I havent slept in two days." Current Medications: Active Medications Generic Name Dose Route Start Last Admin Trade Name Freq PRN Reason Stop Dose Admin Acetaminophen 650 mg 04/12/18 02:53 Tylenol - PO Q4H PRN FEVER Al Hydroxide/Mg Hydroxide 30 ml 04/12/18 02:53 04/14/18 07:29 Mylanta Oral Suspension - PO 30 ml Q6H PRN Administration DYSPEPSIA Albuterol Sulfate 1 amp 04/17/18 12:56 Ventolin 0.083% Nebulizer Soln - NEB Q6H PRN SHORT OF BREATH/WHEEZING Albuterol Sulfate 2 puff 04/17/18 12:56 04/18/18 07:12 Ventolin Hfa Inhaler - IH 2 inh Q4H PRN Administration SHORT OF BREATH/WHEEZING Betamethasone Dipropionate 1 applic 04/16/18 22:00 04/18/18 10:25 Diprolene 0.05% Ointment - TP 1 applic BID ANDREINA Administration Enalapril Maleate 20 mg 04/14/18 22:00 04/18/18 10:22 Vasotec - PO 20 mg BID ANDREINA Administration Eucalyptus/Menthol/Phenol/Sorbitol 1 each 04/12/18 02:53 04/18/18 02:34 Cepastat Lozenge - MM 1 each Q4H PRN Administration SORE THROAT Fluticasone Propionate 1 spray 04/17/18 13:00 04/18/18 10:22 Flonase - NS 1 spray DAILY ANDREINA Administration Guaifenesin 600 mg 04/17/18 13:00 04/18/18 10:22 Mucinex - PO 600 mg BID ANDREINA Administration Hydrochlorothiazide 50 mg 04/14/18 22:00 04/18/18 10:22 Hctz - PO 50 mg DAILY ANDREINA Administration Hydroxyzine Pamoate 50 mg 04/12/18 02:53 04/18/18 10:28 Vistaril - PO 50 mg Q4H PRN Administration AGITATION Ibuprofen 400 mg 04/12/18 02:53 04/14/18 22:20 Motrin - PO 400 mg Q6H PRN Administration Pain level 4-6 Loperamide HCl 4 mg 04/12/18 02:53 Imodium - PO Q6H PRN DIARRHEA Magnesium Citrate 300 ml 04/12/18 02:53 Citroma - PO Q48H PRN CONSTIPATION Magnesium Hydroxide 30 ml 04/12/18 02:53 Milk Of Magnesia - PO DAILY PRN CONSTIPATION Melatonin 5 mg 04/12/18 22:00 04/18/18 04:14 Melatonin PO 5 mg HS PRN Administration INSOMNIA Pantoprazole Sodium 40 mg 04/15/18 07:45 04/18/18 06:52 Protonix - PO 40 mg DAILY@0600 ANDREINA Administration Multivit/Folic Acid/Iron 1 tab 04/12/18 10:00 04/18/18 10:22 Vitamins (Sjr) - PO 1 tab DAILY ANDREINA Administration Suvorexant 10 mg 04/18/18 22:00 Belsomra PO 04/21/18 21:59 HS PRN INSOMNIA Thiamine HCl 100 mg 04/12/18 22:00 04/17/18 21:25 Vitamin B1 - PO Not Given HS ANDREINA Medication(s) Change(s): Yes. Will add Belsomra 10mg qhs Current Side Effect: No Lab tests ordered: No Lab tests reviewed: Yes Provider note:: [employer] met with patient for psychiatric follow up. Pt. reports poor sleep the previous two nights. Chart reviewed. Dr. Yanez's note read and appreciated. Patient denies h/o psychiatric treatment. Pt. presents as hyperverbal and anxious, but is in good control. Patient educated on the benefits and side effects of vistaril and encouraged to accept vistaril when he becomes anxious or agitated. Pt. able to give consent to accepting Belsomra 10mg qhs for insomnia. Benefits and side effects discussed. Will continue to monitor. Total face to face time:: 25 Mental Status Exam - Mental Status Exam Alert and Oriented to: Time, Place, Person Cognitive Function: Good Patient Appearance: Well Groomed Mood: Anxious, Hopeful Affect: Mood Congruent Patient Behavior: Talkative, Cooperative Speech Pattern: Pressured Voice Loudness: Normal Thought Process: Intact, Goal Oriented Thought Disorder: Not Present Hallucinations: Denies Suicidal Ideation: Denies Homicidal Ideation: Denies Insight/Judgement: Poor Sleep: Poorly Appetite: Fair Muscle strength/Tone: Normal Gait/Station: Normal Psychiatric Treatment Plan - Problem List (1) Alcohol dependence Current Visit: Yes (2) Alcohol-induced anxiety disorder Current Visit: Yes (3) Alcohol-induced sleep disorder Current Visit: Yes (4) Chronic back pain Current Visit: Yes (5) HTN (hypertension) Current Visit: Yes Qualifiers: Hypertension type: essential hypertension Qualified Code(s): I10 - Essential (primary) hypertension (6) History of gout Current Visit: Yes (7) History of psoriatic arthritis Current Visit: Yes
[2018-04-18] MEDS: SUVOREXANT 10 MG TABLET PO PRN (21:18)
[2018-04-18] MEDS: THIAMINE HCL 100 MG TABLET (FP) PO SCH (21:18)
[2018-04-18] MEDS: ALBUTEROL SO4 0.083% IH SOL 2.5 MG/3 ML VIAL.NEB. NEB PRN (21:20)
[2018-04-19] MEDS: PANTOPRAZOLE 40 MG TABLET (FP) PO SCH (09:41)
[2018-04-19] MEDS: FLUTICASONE PROP 0.05% 16 GM NASAL SPRAY NS SCH (10:23)
[2018-04-19] MEDS: BETAMETHASONE DIPR 0.05% OINT 45 GM TUBE TP SCH ×2 (10:24→21:23)
[2018-04-19] MEDS: PRENATAL VITAMINS W/ FOLIC ACID TABLET (FP) PO SCH (10:24)
[2018-04-19] MEDS: HYDROCHLOROTHIAZIDE 25 MG TABLET (FP) PO SCH (10:24)
[2018-04-19] MEDS: guaiFENesin 600 MG TABLET.ER (FP) PO SCH ×2 (10:24→21:22)
[2018-04-19] MEDS: ENALAPRIL MALEATE 10 MG TABLET (FP) PO SCH ×2 (10:24→21:22)
[2018-04-19] MEDS: hydrOXYzine PAMOATE 50 MG CAPSULE (FP) PO PRN ×3 (10:26→21:22)
[2018-04-19] MEDS: ALBUTEROL SO4 18 GM HFA INHALER IH PRN (16:43)
[2018-04-19] MEDS: MENTHOL/PHENOL 1 EACH UD MM PRN (20:24)
[2018-04-19] MEDS: SUVOREXANT 10 MG TABLET PO PRN (21:22)
[2018-04-19] MEDS: THIAMINE HCL 100 MG TABLET (FP) PO SCH (21:22)
[2018-04-19] MEDS: ALBUTEROL SO4 0.083% IH SOL 2.5 MG/3 ML VIAL.NEB. NEB PRN (22:30)
[2018-04-20] MEDS: PANTOPRAZOLE 40 MG TABLET (FP) PO SCH (06:38)
[2018-04-20] MEDS: ALBUTEROL SO4 0.083% IH SOL 2.5 MG/3 ML VIAL.NEB. NEB PRN (06:39)
[2018-04-20] MEDS: hydrOXYzine PAMOATE 50 MG CAPSULE (FP) PO PRN ×3 (06:47→21:33)
[2018-04-20] MEDS: ALBUTEROL SO4 18 GM HFA INHALER IH PRN (09:30)
[2018-04-20] MEDS: ENALAPRIL MALEATE 10 MG TABLET (FP) PO SCH ×2 (10:28→21:33)
[2018-04-20] MEDS: PRENATAL VITAMINS W/ FOLIC ACID TABLET (FP) PO SCH (10:28)
[2018-04-20] MEDS: HYDROCHLOROTHIAZIDE 25 MG TABLET (FP) PO SCH (10:28)
[2018-04-20] MEDS: BETAMETHASONE DIPR 0.05% OINT 45 GM TUBE TP SCH ×2 (10:29→21:33)
[2018-04-20] MEDS: FLUTICASONE PROP 0.05% 16 GM NASAL SPRAY NS SCH (10:29)
[2018-04-20] MEDS: guaiFENesin 600 MG TABLET.ER (FP) PO SCH ×2 (10:30→21:33)
[2018-04-20] MEDS: SUVOREXANT 10 MG TABLET PO PRN (21:33)
[2018-04-20] MEDS: THIAMINE HCL 100 MG TABLET (FP) PO SCH (21:33)
[2018-04-20] MEDS: MENTHOL/PHENOL 1 EACH UD MM PRN (21:34)
[2018-04-21] MEDS: MELATONIN 5 MG TABLETS PO PRN (01:42)
[2018-04-21] MEDS: PANTOPRAZOLE 40 MG TABLET (FP) PO SCH (06:12)
[2018-04-21] MEDS: ALBUTEROL SO4 0.083% IH SOL 2.5 MG/3 ML VIAL.NEB. NEB PRN (06:12)
[2018-04-21] MEDS: FLUTICASONE PROP 0.05% 16 GM NASAL SPRAY NS SCH (10:13)
[2018-04-21] MEDS: PRENATAL VITAMINS W/ FOLIC ACID TABLET (FP) PO SCH (10:14)
[2018-04-21] MEDS: guaiFENesin 600 MG TABLET.ER (FP) PO SCH ×2 (10:14→21:44)
[2018-04-21] MEDS: ENALAPRIL MALEATE 10 MG TABLET (FP) PO SCH ×2 (10:15→21:41)
[2018-04-21] MEDS: HYDROCHLOROTHIAZIDE 25 MG TABLET (FP) PO SCH (10:15)
[2018-04-21] MEDS: BETAMETHASONE DIPR 0.05% OINT 45 GM TUBE TP SCH ×2 (10:16→21:45)
[2018-04-21] MEDS: hydrOXYzine PAMOATE 50 MG CAPSULE (FP) PO PRN ×2 (10:17→15:25)
[2018-04-21] MEDS: ALBUTEROL SO4 18 GM HFA INHALER IH PRN ×2 (14:28→21:45)
[2018-04-21] MEDS: MENTHOL/PHENOL 1 EACH UD MM PRN (15:23)
[2018-04-21] MEDS: THIAMINE HCL 100 MG TABLET (FP) PO SCH (21:41)
[2018-04-21] MEDS: SUVOREXANT 10 MG TABLET PO PRN (21:43)
[2018-04-21] MEDS ORDERED: P-EPHED 60MG/TRIPROLIDI 2.5MG TABLET PO PRN (22:57)
[2018-04-21] MEDS: P-EPHED 60MG/TRIPROLIDI 2.5MG TABLET PO PRN (23:11)
[2018-04-22] MEDS: PANTOPRAZOLE 40 MG TABLET (FP) PO SCH (06:49)
[2018-04-22] MEDS: hydrOXYzine PAMOATE 50 MG CAPSULE (FP) PO PRN ×3 (06:50→21:32)
[2018-04-22] MEDS: FLUTICASONE PROP 0.05% 16 GM NASAL SPRAY NS SCH (10:23)
[2018-04-22] MEDS: PRENATAL VITAMINS W/ FOLIC ACID TABLET (FP) PO SCH (10:23)
[2018-04-22] MEDS: ENALAPRIL MALEATE 10 MG TABLET (FP) PO SCH ×2 (10:23→21:30)
[2018-04-22] MEDS: HYDROCHLOROTHIAZIDE 25 MG TABLET (FP) PO SCH (10:23)
[2018-04-22] MEDS: guaiFENesin 600 MG TABLET.ER (FP) PO SCH ×2 (10:24→21:31)
[2018-04-22] MEDS: BETAMETHASONE DIPR 0.05% OINT 45 GM TUBE TP SCH ×2 (10:24→21:33)
[2018-04-22] MEDS: P-EPHED 60MG/TRIPROLIDI 2.5MG TABLET PO PRN (10:26)
[2018-04-22] MEDS: ALBUTEROL SO4 18 GM HFA INHALER IH PRN ×2 (14:40→20:16)
[2018-04-22] MEDS: MELATONIN 5 MG TABLETS PO PRN (21:32)
[2018-04-22] MEDS: THIAMINE HCL 100 MG TABLET (FP) PO SCH (21:42)
[2018-04-23] MEDS: hydrOXYzine PAMOATE 50 MG CAPSULE (FP) PO PRN ×4 (01:45→21:32)
[2018-04-23] MEDS: PANTOPRAZOLE 40 MG TABLET (FP) PO SCH (06:39)
[2018-04-23] MEDS: ALBUTEROL SO4 0.083% IH SOL 2.5 MG/3 ML VIAL.NEB. NEB PRN (07:13)
[2018-04-23] MEDS: HYDROCHLOROTHIAZIDE 25 MG TABLET (FP) PO SCH (10:41)
[2018-04-23] MEDS: PRENATAL VITAMINS W/ FOLIC ACID TABLET (FP) PO SCH (10:41)
[2018-04-23] MEDS: guaiFENesin 600 MG TABLET.ER (FP) PO SCH ×2 (10:41→21:32)
[2018-04-23] MEDS: BETAMETHASONE DIPR 0.05% OINT 45 GM TUBE TP SCH ×2 (10:42→21:37)
[2018-04-23] MEDS: FLUTICASONE PROP 0.05% 16 GM NASAL SPRAY NS SCH (10:42)
[2018-04-23] MEDS: ENALAPRIL MALEATE 10 MG TABLET (FP) PO SCH ×2 (11:12→21:32)
[2018-04-23] MEDS: ALBUTEROL SO4 18 GM HFA INHALER IH PRN ×2 (16:41→21:34)
[2018-04-23] MEDS: THIAMINE HCL 100 MG TABLET (FP) PO SCH (21:32)
[2018-04-23] MEDS: MELATONIN 5 MG TABLETS PO PRN (21:33)
[2018-04-24] MEDS: PANTOPRAZOLE 40 MG TABLET (FP) PO SCH (06:45)
[2018-04-24] MEDS: guaiFENesin 600 MG TABLET.ER (FP) PO SCH ×2 (10:22→21:33)
[2018-04-24] MEDS: FLUTICASONE PROP 0.05% 16 GM NASAL SPRAY NS SCH (10:22)
[2018-04-24] MEDS: HYDROCHLOROTHIAZIDE 25 MG TABLET (FP) PO SCH (10:22)
[2018-04-24] MEDS: PRENATAL VITAMINS W/ FOLIC ACID TABLET (FP) PO SCH (10:22)
[2018-04-24] MEDS: BETAMETHASONE DIPR 0.05% OINT 45 GM TUBE TP SCH ×2 (10:23→21:33)
[2018-04-24] MEDS: ENALAPRIL MALEATE 10 MG TABLET (FP) PO SCH ×2 (10:23→21:33)
[2018-04-24] MEDS: hydrOXYzine PAMOATE 50 MG CAPSULE (FP) PO PRN ×3 (10:24→21:33)
--- NOTE | 2018-04-24 13:18 | PN ---
Psychiatric Progress Note Vital Signs: Vital Signs Period Temp Pulse Resp BP Sys/Wren Pulse Ox Last 24 Hr 97.9 F 99-118 -18 106-131/79-83 Date of Session: 04/24/18 Chief Complaint:: Discharge Note HPI: Patient addressing Alcohol Dependence comorbid with Alcohol-Induced Anxiety Disorder and Alcohol-InducedSleep Disorder ROS: Chronic back pain, Gout. Psoriatic arthritis Current Medications: Active Medications Generic Name Dose Route Start Last Admin Trade Name Freq PRN Reason Stop Dose Admin Acetaminophen 650 mg 04/12/18 02:53 Tylenol - PO Q4H PRN FEVER Al Hydroxide/Mg Hydroxide 30 ml 04/12/18 02:53 04/14/18 07:29 Mylanta Oral Suspension - PO 30 ml Q6H PRN Administration DYSPEPSIA Albuterol Sulfate 1 amp 04/17/18 12:56 04/23/18 07:13 Ventolin 0.083% Nebulizer Soln - NEB 1 amp Q6H PRN Administration SHORT OF BREATH/WHEEZING Albuterol Sulfate 2 puff 04/17/18 12:56 04/23/18 21:34 Ventolin Hfa Inhaler - IH 2 inh Q4H PRN Administration SHORT OF BREATH/WHEEZING Betamethasone Dipropionate 1 applic 04/16/18 22:00 04/24/18 10:23 Diprolene 0.05% Ointment - TP Not Given BID ANDREINA Enalapril Maleate 20 mg 04/14/18 22:00 04/24/18 10:23 Vasotec - PO 20 mg BID ANDREINA Administration Eucalyptus/Menthol/Phenol/Sorbitol 1 each 04/12/18 02:53 04/21/18 15:23 Cepastat Lozenge - MM 1 each Q4H PRN Administration SORE THROAT Fluticasone Propionate 1 spray 04/17/18 13:00 04/24/18 10:22 Flonase - NS 1 spray DAILY ANDREINA Administration Guaifenesin 600 mg 04/17/18 13:00 04/24/18 10:22 Mucinex - PO 600 mg BID ANDREINA Administration Hydrochlorothiazide 50 mg 04/14/18 22:00 04/24/18 10:22 Hctz - PO 50 mg DAILY ANDREINA Administration Hydroxyzine Pamoate 50 mg 04/12/18 02:53 04/24/18 10:24 Vistaril - PO 50 mg Q4H PRN Administration AGITATION Ibuprofen 400 mg 04/12/18 02:53 04/14/18 22:20 Motrin - PO 400 mg Q6H PRN Administration Pain level 4-6 Loperamide HCl 4 mg 04/12/18 02:53 Imodium - PO Q6H PRN DIARRHEA Magnesium Citrate 300 ml 04/12/18 02:53 Citroma - PO Q48H PRN CONSTIPATION Magnesium Hydroxide 30 ml 04/12/18 02:53 Milk Of Magnesia - PO DAILY PRN CONSTIPATION Melatonin 5 mg 04/12/18 22:00 04/23/18 21:33 Melatonin PO 5 mg HS PRN Administration INSOMNIA Pantoprazole Sodium 40 mg 04/15/18 07:45 04/24/18 06:45 Protonix - PO 40 mg DAILY@0600 ANDREINA Administration Multivit/Folic Acid/Iron 1 tab 04/12/18 10:00 04/24/18 10:22 Vitamins (Sjr) - PO 1 tab DAILY ANDREINA Administration Pseudoephedrine/Triprolidine 1 combo 04/21/18 23:02 04/22/18 10:26 Actifed - PO 1 combo Q8H PRN Administration NASAL CONGESTION Thiamine HCl 100 mg 04/12/18 22:00 04/23/18 21:32 Vitamin B1 - PO 100 mg HS ANDREINA Administration Current Side Effect: No Lab tests ordered: Yes Lab tests reviewed: Yes Provider note:: Patient will complete this program on 04/25/18. He has met his treatment goals and will continue to address by attending AA/NA. Told headline writer that from his participation in this program, he has learned the value in making meetings and have a sponsor. Heresponded well to [facility] for insomnia. He is stable for discharge on 04/25/18 Total face to face time:: 35 Psychiatric Treatment Plan - Problem List (1) Alcohol dependence Current Visit: Yes (2) Alcohol-induced sleep disorder Current Visit: Yes (3) Alcohol-induced anxiety disorder Current Visit: Yes (4) Chronic back pain Current Visit: Yes (5) HTN (hypertension) Current Visit: Yes Qualifiers: Hypertension type: essential hypertension Qualified Code(s): I10 - Essential (primary) hypertension (6) History of gout Current Visit: Yes (7) History of psoriatic arthritis Current Visit: Yes Initial treatment plan: Patient will be discharged tomorrow and will be attending AA/NA as he refuses referral to outpatient treatment
[2018-04-24] MEDS: ALBUTEROL SO4 18 GM HFA INHALER IH PRN (15:32)
[2018-04-24] MEDS ORDERED: SUVOREXANT 10 MG TABLET PO PRN (16:46)
[2018-04-24] MEDS: THIAMINE HCL 100 MG TABLET (FP) PO SCH (21:33)
[2018-04-25] MEDS: PANTOPRAZOLE 40 MG TABLET (FP) PO SCH (06:25)
[2018-04-25 06:53] VITALS: BP 131/91; PULSE 101; TEMP 97.7
[2018-04-25] MEDS: HYDROCHLOROTHIAZIDE 25 MG TABLET (FP) PO SCH (10:54)
[2018-04-25] MEDS: PRENATAL VITAMINS W/ FOLIC ACID TABLET (FP) PO SCH (10:54)
[2018-04-25] MEDS: ENALAPRIL MALEATE 10 MG TABLET (FP) PO SCH (10:55)
[2018-04-25] MEDS: FLUTICASONE PROP 0.05% 16 GM NASAL SPRAY NS SCH (10:56)
[2018-04-25] MEDS: guaiFENesin 600 MG TABLET.ER (FP) PO SCH (10:57)
[2018-04-25] MEDS: BETAMETHASONE DIPR 0.05% OINT 45 GM TUBE TP SCH (10:59)
== END 2018-04-25 11:20 | disposition home or self-care (01) | DRG 895 ==
LOC: YASAS 02:16 → Y5N 02:17
PROVIDERS: ADMIT Psychiatry & Neurology Psychiatry; ATTEND Psychiatry & Neurology Psychiatry
PROC: HZ42ZZZ Group Counseling for Substance Abuse Treatment, Cognitive-Behavioral (ICD-10-PCS; principal; 2018-04-12)
DX: F10.280 Alcohol dependence with alcohol-induced anxiety disorder (principal); F10.20 Alcohol dependence, uncomplicated; F10.282 Alcohol dependence with alcohol-induced sleep disorder; I10 Essential (primary) hypertension; M06.9 Rheumatoid arthritis, unspecified; M10.9 Gout, unspecified; L40.9 Psoriasis, unspecified; M54.9 Dorsalgia, unspecified; G89.29 Other chronic pain; L40.50 Arthropathic psoriasis, unspecified
CPT/HCPCS: 36415; 81003; 86593; 93005; 93010; 94640; J0735

== ENCOUNTER 2018-12-30 15:25 | Inpatient (IN) | payer OTHER ==
[2018-12-30 16:24] VITALS: BP 145/98; PULSE 107; TEMP 98.6; BMI 27.0
--- NOTE | 2018-12-30 18:07 | HP ---
CIWA Score Muscle Tremors: None - Admission Criteria [facility] Guidelines: Admission for Medically Managed Detox: Requires at least one of the followin. CIWA greater than 12 2. Seizures within the past 24 hours 3. Delirium tremens within the past 24 hours 4. Hallucinations within the past 24 hours 5. Acute intervention needed for co occurring medical disorder 6. Acute intervention needed for co occurring psychiatric disorder 7. Severe withdrawal that cannot be handled at a lower level of care (continued vomiting, continued diarrhea, abnormal vital signs) requiring intravenous medication and/or fluids 8. Admission ROS [facility] Chief Complaint: requesting admission for alcohol detox: Pt is intoxicated- argumentative. 58 yo with h/o HTN, last here 04/2018. NICA was 0.19 initially, repeat 0.22. 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 alcohol:1 pint vodka, last drink today, no h/o seizures and no DT's DUR/ISTOP: Valium #60 tabs on 12/25/18, 11/28/18 Percocets #120 tabs on 12/25, 11/28, 11/02 URINE DRUG SCREEN RESULTS Drug Screen Negative No Drug Screen Negative No Urine Drug Screen Results ANA-Cocaine,BZO-Benzodiazepines,OXY-Oxycodone Urine Drug Screen Results ANA-Cocaine,BZO-Benzodiazepines,OXY-Oxycodone Pt is sent to [facility] for stabilization. Allergies/Adverse Reactions: Allergies Allergy/AdvReac Type Severity Reaction Status Date / Time No Known Allergies Allergy Verified 12/30/18 16:35 Exam Limitations: No Limitations - Ebola screening Have you traveled outside of the country in the last 21 days: No (N) Have you had contact with anyone from an Ebola affected area: No Have you been sick,other than usual withdrawal symptoms: No Do you have a fever: No Patient History - Patient Medical History Hx Anemia: No Hx Asthma: No Hx Chronic Obstructive Pulmonary Disease (COPD): No Hx Cancer: No Hx Cardiac Disorders: No Hx Congestive Heart Failure: No Hx Hypertension: (ON MEDICATION) Hx Hypercholesterolemia: No Hx Pacemaker: No HX Cerebrovascular Accident: No Hx Seizures: No Hx Dementia: No Hx Diabetes: No Hx Gastrointestinal Disorders: No Hx Liver Disease: No Hx Genitourinary Disorders: No Hx Sexually Transmitted Disorders: No Hx Renal Disease (ESRD): No Hx Thyroid Disease: No Hx Human Immunodeficiency Virus (HIV): No Hx Hepatitis C: No Hx Depression: No Hx Suicide Attempt: No Hx Bipolar Disorder: No Hx Schizophrenia: No - Patient Surgical History Past Surgical History: No Hx Neurologic Surgery: No Hx Cataract Extraction: No Hx Cardiac Surgery: No Hx Lung Surgery: No Hx Breast Surgery: No Hx Breast Biopsy: No Hx Abdominal Surgery: No Hx Appendectomy: No Hx Cholecystectomy: No Hx Genitourinary Surgery: No Hx Section: No Hx Orthopedic Surgery: No - PPD History Date: 04/19/18 Results: neg cxr noted - Smoking Cessation Smoking history: Never smoked Have you smoked in the past 12 months: No Hx Chewing Tobacco Use: No - Substances Abused Alcohol Route: Oral Frequency: Daily Amount used: 1 PINT VODKA Age of first use: 23 Date of Last Use: 12/30/18 Oxycontin Route: Oral Frequency: Daily Amount used: 2/5MG Age of first use: 32 Date of Last Use: 12/30/18 Admission Physical Exam [facility] - Vital Signs Vital Signs: Vital Signs - 24 hr 12/30/18 12/30/18 16:22 16:23 Temperature 98.6 F 98.6 F Pulse Rate 107 H 107 H Respiratory 18 18 Rate Blood Pressure 145/98 145/98 - Physical General Appearance: Yes: Alcohol on Breath, Intoxicated, Irritable HEENTM: Yes: Hearing grossly Normal, SHANELLE, Pharynx Normal Respiratory: Yes: Chest Non-Tender, Lungs Clear Neck: Yes: Within Normal Limits, Supple Cardiology: Yes: Within Normal Limits, Regular Rate Abdominal: Yes: Within Normal Limits, Protuberent Neurological: Yes: Other (pt is intoxicated) - Diagnostic (1) Alcohol intoxication Current Visit: Yes Status: Acute S Breath Alcohol Content Breath Alcohol Content: 0.198 Urine Drug Screen - Results Drug Screen Negative: No Urine Drug Screen Results: ANA-Cocaine, BZO-Benzodiazepines, OXY-Oxycodone Inpatient Rehab Admission - Rehab Decision to Admit Inpatient rehab admission?: No
[2018-12-31] MEDS ORDERED: MAGNESIUM HYDROX 2400MG/30ML ORAL SUSPENSION 30 ML CUP PO PRN (05:21)
[2018-12-31] MEDS ORDERED: chlordiazePOXIDE HCL 25 MG CAPSULE PO PRN (05:21)
[2018-12-31] MEDS ORDERED: P-EPHED 60MG/TRIPROLIDI 2.5MG TABLET PO PRN (05:21)
[2018-12-31] MEDS ORDERED: chlordiazePOXIDE HCL 25 MG CAPSULE PO ONE (05:21)
[2018-12-31] MEDS ORDERED: IBUPROFEN 400 MG TABLET (FP) PO PRN (05:21)
[2018-12-31] MEDS ORDERED: MENTHOL/PHENOL 1 EACH UD MM PRN (05:21)
[2018-12-31] MEDS ORDERED: MAGNESIUM CITRATE 300 ML BOTTLE PO PRN (05:21)
[2018-12-31] MEDS ORDERED: MAG HYDROX/AL HYDROX/SIMETH 30 ML UNIT-DOSE CUP PO PRN (05:21)
[2018-12-31] MEDS ORDERED: guaiFENesin/D-METHORPHAN HB 10 ML UNIT-DOSE CUPS PO PRN (05:21)
[2018-12-31] MEDS ORDERED: ACETAMINOPHEN 325 MG TABLET (FP) PO PRN (05:21)
[2018-12-31] MEDS ORDERED: hydrOXYzine PAMOATE 50 MG CAPSULE (FP) PO PRN (05:21)
[2018-12-31] MEDS ORDERED: LOPERAMIDE HCL 2 MG CAPSULE PO PRN (05:21)
[2018-12-31] MEDS ORDERED: ALBUTEROL SO4 8 GM HFA INHALER IH PRN (05:32)
[2018-12-31] MEDS ORDERED: ENALAPRIL MALEATE 5 MG TABLET (FP) PO SCH (10:00)
[2018-12-31] MEDS ORDERED: PRENATAL VITAMINS W/ FOLIC ACID TABLET (FP) PO SCH (10:00)
[2018-12-31] MEDS ORDERED: chlordiazePOXIDE HCL 25 MG CAPSULE PO SCH (11:00)
[2018-12-31] MEDS ORDERED: MELATONIN 5 MG TABLETS PO PRN (22:00)
[2018-12-31] MEDS ORDERED: THIAMINE HCL 100 MG TABLET (FP) PO SCH (22:00)
[2019-01-01] MEDS ORDERED: chlordiazePOXIDE HCL 25 MG CAPSULE PO SCH (11:00)
[2019-01-02] MEDS ORDERED: chlordiazePOXIDE 5 MG CAPSULE PO SCH (11:00)
[2019-01-03] MEDS ORDERED: chlordiazePOXIDE HCL 10 MG CAPSULE PO SCH (11:00)
== END 2018-12-31 08:03 | disposition left against medical advice (07) | DRG 894 ==
LOC: YASAS 15:25 → Y6N 12-31 05:26
PROVIDERS: ADMIT Surgery; ATTEND Surgery
PROC: HZ2ZZZZ Detoxification Services for Substance Abuse Treatment (ICD-10-PCS; principal; 2018-12-31)
DX: F10.230 Alcohol dependence with withdrawal, uncomplicated (principal); F10.220 Alcohol dependence with intoxication, uncomplicated
CPT/HCPCS: 36415; 80053; 80307; 81003; 85025; 99281-25; J7030

== ENCOUNTER 2018-12-30 20:06 | Emergency (ER) | payer SELFPAY ==
[2018-12-30 20:16] VITALS: TEMP 98.2; BMI 27.7
[2018-12-30] MEDS ORDERED: FOLIC ACID INJECTION - 1 MG, THIAMINE HCL 100 MG, MULTIVIT INJECTION ADULT 10 ML in SOD... IVPB ONE (20:53)
[2018-12-30 21:00] LABS: EOS % 1.3 % (0-4.5); HEMATOCRIT 37.5 % (35.4-49); HEMOGLOBIN 13.2 GM/dL (11.7-16.9); LYMPH % 26.7 % (8-40); MCH 33.7 pg (25.7-33.7); MCHC 35.3 g/dl (32.0-35.9); MEAN CELL VOLUME 95.6 fl (80-96); MEAN PLT VOLUME 7.4 fl (7.5-11.1); MONO % 8.2 % (3.8-10.2); NEUT % 62.8 % (42.8-82.8); PLATELET COUNT 255 K/MM3 (134-434); RBC 3.92 M/mm3 (4.00-5.60); RDW 14.4 % (11.9-15.9); WHITE BLOOD COUNT 7.8 K/mm3 (4.0-10.0)
[2018-12-30 21:25] LABS: ALK PHOS 77 U/L (45-117); ANION GAP 10 MMOL/L (8-16); BILIRUBIN,TOTAL 0.5 mg/dL (0.2-1); BLOOD UREA NITROGEN 23 mg/dL (7-18); CALCIUM 8.5 mg/dL (8.5-10.1); CHLORIDE 105 mmol/L (98-107); CO2 24 mmol/L (21-32); CREATININE 1.3 mg/dL (0.55-1.3); GLUCOSE,RANDOM 109 mg/dL (74-106); POTASSIUM 4.7 mmol/L (3.5-5.1); SGOT/AST 51 U/L (15-37); SGPT/ALT 36 U/L (13-61); SODIUM 139 mmol/L (136-145); TOT PROT 7.4 g/dl (6.4-8.2)
[2018-12-30] MEDS ORDERED: LORazepam 2 MG/ML SDV VIAL ONE (21:29)
[2018-12-30 21:31] LABS: URINE APPEARANCE CLEAR; URINE BILIRUBIN NEGATIVE (<2.0 mg/dL); URINE COLOR STRAW; URINE GLUCOSE (UA) NEGATIVE (NEGATIVE); URINE KETONE NEGATIVE (NEGATIVE); URINE LEUK ESTERASE NEGATIVE (NEGATIVE); URINE NITRITE NEGATIVE (NEGATIVE); URINE PROTEIN NEGATIVE (NEGATIVE); URINE UROBILINOGEN NEGATIVE mg/dL (0.2-1.0)
[2018-12-30] MEDS ORDERED: HALOPERIDOL LACTATE 5 MG/ML ONE (21:42)
[2018-12-30 21:48] LABS: METHADONE, UR NEGATIVE ng/ml (CUTOFF=300); OPIATES, URI NEGATIVE ng/ml (CUTOFF=300); PHENCYCLIDINE,URINE NEGATIVE ng/ml (CUTOFF=25); URINE AMPHETAMINES NEGATIVE ng/ml (CUTOFF=500); URINE BARBITURATES NEGATIVE ng/ml (CUTOFF=200)
[2018-12-30] MEDS ORDERED: HALOPERIDOL LACTATE 5 MG/ML IM ONE (21:53)
[2018-12-30 22:04] LABS: COCAINE, UR POSITIVE ng/ml (CUTOFF=300); URINE BENZODIAZEPINES POSITIVE ng/ml (CUTOFF=200)
--- NOTE | 2018-12-30 22:35 | PDOC ---
History of Present Illness - General History Source: Patient Exam Limitations: Intoxication - History of Present Illness Initial Comments: 12/30/18 22:39 The patient is a tall 61 year old male, with a significant past medical history of HTN and alcoholism (1 pint/day, last drink today), who presents to the emergency department today from [facility] because he was too intoxicated and argumentative when he arrived there. As per ISTOP, the patient was prescribed 60 tabs valium, 120 tabs percocet, and 2/5mg oxycontin/day, on 12/25/18. Drug screen at [facility] tested positive for cocaine, benzos and oxycodone and has an alcohol level of 0.2. Upon arrival to the ED, the patient is intoxicated. The patient denies chest pain, shortness of breath, headache and dizziness. Denies fever, chills, nausea, vomit, diarrhea and constipation. Denies dysuria, frequency, urgency and hematuria. Allergies: NKA Social history: Alcohol abuse. Illicit drug use. <Fay Rowe - Last Filed: 12/30/18 22:39> <Almaz Zuniga - Last Filed: 01/02/19 02:58> - General Chief Complaint: Alcohol intoxication Stated Complaint: INTOXICATION Time Seen by Provider: 12/30/18 20:24 Past History <Fay Rowe - Last Filed: 12/30/18 22:39> - Past Medical History Anemia: No Asthma: No Cancer: No Cardiac Disorders: No CVA: No COPD: No CHF: No Dementia: No Diabetes: No GI Disorders: No Disorders: No HTN: (ON MEDICATION) Hypercholesterolemia: No Kidney Stones: No Liver Disease: No Seizures: No Thyroid Disease: No - Surgical History Abdominal Surgery: No Appendectomy: No Cardiac Surgery: No Cholecystectomy: No Lung Surgery: No Neurologic Surgery: No Orthopedic Surgery: No - Reproductive History Testicular Surgery: No - Suicide/Smoking/Psychosocial Hx Smoking History: Never smoked Have you smoked in the past 12 months: No Hx Alcohol Use: Yes Drug/Substance Use Hx: No Substance Use Type: Alcohol Hx Substance Use Treatment: Yes (ONLY ALCOHOL) <Almaz Zuniga - Last Filed: 01/02/19 02:58> - Past Medical History Allergies/Adverse Reactions: Allergies Allergy/AdvReac Type Severity Reaction Status Date / Time No Known Allergies Allergy Verified 12/30/18 20:16 Home Medications: Ambulatory Orders Enalapril Maleate 20 mg PO DAILY 04/12/18 Albuterol Sulfate Inhaler - [Ventolin HFA Inhaler -] 2 puff IH Q4H PRN #1 inhaler 04/25/18 Review of Systems - Review of Systems Comments:: 12/30/18 22:40 CONSTITUTIONAL: (+)intoxicated Absent: fever, no chills, no fatigue EYES: Absent: visual changes ENT: Absent: ear pain, no sore throat CARDIOVASCULAR: Absent: chest pain, no palpitations RESPIRATORY: Absent: cough, no SOB GI: Absent: abdominal pain, no nausea, no vomiting, no constipation, no diarrhea GENITOURINARY: Absent: dysuria, no frequency, no hematuria MUSKULOSKELETAL: Absent: back pain, no arthralgia, no myalgia SKIN: Absent: rash NEURO: Absent: headache <Fay Rowe - Last Filed: 12/30/18 22:39> *Physical Exam - Vital Signs Last Vital Signs Temp Pulse Resp BP Pulse Ox 98.2 F 106 H 18 140/80 92 L 12/30/18 20:08 12/30/18 20:08 12/30/18 20:08 12/30/18 20:08 12/30/18 20:08 - Physical Exam Comments: 12/30/18 22:40 GENERAL: Well developed, well nourished. No acute distress. HEENT: Normocephalic, atraumatic. PERRLA, EOMI. No conjunctival pallor. Sclera are non- icteric. Moist mucous membranes. Oropharynx is clear. NECK: Supple. Full ROM. No JVD. Carotid pulses 2+ and symmetric, without bruits. No thyromegaly. No lymphadenopathy. CARDIOVASCULAR:(+)Tachycardic Regular rate and rhythm. No murmurs, rubs, or gallops. Distal pulses are 2+ and symmetric. PULMONARY: No evidence of respiratory distress. Lungs clear to auscultation bilaterally. No wheezing, rales or rhonchi. ABDOMINAL: Soft. Non-tender. Non-distended. No rebound or guarding. No organomegaly. Normoactive bowel sounds. MUSCULOSKELETAL Normal range of motion at all joints. No bony deformities or tenderness. No CVA tenderness. EXTREMITIES: No edema. No erythema. No erythematous. SKIN: Warm and dry. Normal capillary refill. No rashes. No jaundice. NEUROLOGICAL: (+) alcohol on breath. (+)intoxicated. Ambulatory but slightly unsteady gait. Motor strength 5/5 PSYCHIATRIC: Cooperative. Good eye contact. Appropriate mood and affect. <Fay Rowe - Last Filed: 12/30/18 22:39> - Vital Signs Last Vital Signs Temp Pulse Resp BP Pulse Ox 98.2 F 106 H 18 140/80 92 L 12/30/18 20:08 12/30/18 20:08 12/30/18 20:08 12/30/18 20:08 12/30/18 20:08 <Almaz Zuniga - Last Filed: 01/02/19 02:58> Moderate Sedation - Procedure Monitoring Vital Signs: Procedure Monitoring Vital Signs Temperature 98.2 F 12/30/18 20:08 Pulse Rate 106 H 12/30/18 20:08 Respiratory Rate 18 12/30/18 20:08 Blood Pressure 140/80 12/30/18 20:08 O2 Sat by Pulse Oximetry (%) 92 L 12/30/18 20:08 <Fay Rowe - Last Filed: 12/30/18 22:39> - Procedure Monitoring Vital Signs: Procedure Monitoring Vital Signs Temperature 98.2 F 12/30/18 20:08 Pulse Rate 106 H 12/30/18 20:08 Respiratory Rate 18 12/30/18 20:08 Blood Pressure 140/80 12/30/18 20:08 O2 Sat by Pulse Oximetry (%) 92 L 12/30/18 20:08 <Almaz Zuniga - Last Filed: 01/02/19 02:58> ED Treatment Course - LABORATORY CBC & Chemistry Diagram: 12/30/18 20:53 12/30/18 20:53 - ADDITIONAL ORDERS Additional order review: Laboratory Results 12/30/18 12/30/18 12/30/18 21:18 21:18 20:53 Sodium 139 Potassium 4.7 Chloride 105 Carbon Dioxide 24 Anion Gap 10 BUN 23 H Creatinine 1.3 Creat Clearance w eGFR 57.10 Random Glucose 109 H Calcium 8.5 Total Bilirubin 0.5 AST 51 H ALT 36 Alkaline Phosphatase 77 Total Protein 7.4 Albumin 4.0 Urine Color Straw Urine Appearance Clear Urine pH 6.0 Ur Specific [place] 1.004 L Urine Protein Negative Urine Glucose (UA) Negative Urine Ketones Negative Urine Blood Negative Urine Nitrite Negative Urine Bilirubin Negative Urine Urobilinogen Negative Ur Leukocyte Esterase Negative Opiates Screen Negative Methadone Screen Negative Barbiturate Screen Negative Phencyclidine Screen Negative Ur Amphetamines Screen Negative MDMA (Ecstasy) Screen Negative Benzodiazepines Screen Positive A* Cocaine Screen Positive A* U Marijuana (THC) Screen Negative Alcohol, Quantitative 276.1 H 12/30/18 20:53 RBC 3.92 L MCV 95.6 MCHC 35.3 RDW 14.4 MPV 7.4 L Neutrophils % 62.8 Lymphocytes % 26.7 D Monocytes % 8.2 Eosinophils % 1.3 Basophils % 1.0 - Medications Given in the ED: ED Medications Discontinued Medications Generic Name Dose Route Start Last Admin Trade Name Freq PRN Reason Stop Dose Admin Diphenhydramine HCl 25 mg 12/30/18 21:53 12/30/18 21:55 Benadryl Injection - IVPUSH 12/30/18 21:54 25 mg ONCE ONE Administration Haloperidol 5 mg 12/30/18 21:53 12/30/18 21:55 Haldol Injection (Fast Acting) - IM 12/30/18 21:54 5 mg ONCE ONE Administration Lorazepam 2 mg 12/30/18 21:29 12/30/18 21:32 Ativan Injection - IVPUSH 12/30/18 21:30 2 mg ONCE ONE Administration Lorazepam 2 mg 12/30/18 21:53 12/30/18 22:32 Ativan Injection - IVPUSH 12/30/18 21:54 Not Given ONCE ONE <Fay Rowe - Last Filed: 12/30/18 22:39> - LABORATORY CBC & Chemistry Diagram: 12/30/18 20:53 12/30/18 20:53 - ADDITIONAL ORDERS Additional order review: Laboratory Results 12/30/18 12/30/18 12/30/18 21:18 21:18 20:53 Sodium 139 Potassium 4.7 Chloride 105 Carbon Dioxide 24 Anion Gap 10 BUN 23 H Creatinine 1.3 Creat Clearance w eGFR 57.10 Random Glucose 109 H Calcium 8.5 Total Bilirubin 0.5 AST 51 H ALT 36 Alkaline Phosphatase 77 Total Protein 7.4 Albumin 4.0 Urine Color Straw Urine Appearance Clear Urine pH 6.0 Ur Specific [place] 1.004 L Urine Protein Negative Urine Glucose (UA) Negative Urine Ketones Negative Urine Blood Negative Urine Nitrite Negative Urine Bilirubin Negative Urine Urobilinogen Negative Ur Leukocyte Esterase Negative Opiates Screen Negative Methadone Screen Negative Barbiturate Screen Negative Phencyclidine Screen Negative Ur Amphetamines Screen Negative MDMA (Ecstasy) Screen Negative Benzodiazepines Screen Positive A* Cocaine Screen Positive A* U Marijuana (THC) Screen Negative Alcohol, Quantitative 276.1 H 12/30/18 20:53 RBC 3.92 L MCV 95.6 MCHC 35.3 RDW 14.4 MPV 7.4 L Neutrophils % 62.8 Lymphocytes % 26.7 D Monocytes % 8.2 Eosinophils % 1.3 Basophils % 1.0 - Medications Given in the ED: ED Medications Discontinued Medications Generic Name Dose Route Start Last Admin Trade Name Freq PRN Reason Stop Dose Admin Diphenhydramine HCl 25 mg 12/30/18 21:53 12/30/18 21:55 Benadryl Injection - IVPUSH 12/30/18 21:54 25 mg ONCE ONE Administration Haloperidol 5 mg 12/30/18 21:53 12/30/18 21:55 Haldol Injection (Fast Acting) - IM 12/30/18 21:54 5 mg ONCE ONE Administration Lorazepam 2 mg 12/30/18 21:29 12/30/18 21:32 Ativan Injection - IVPUSH 12/30/18 21:30 2 mg ONCE ONE Administration Lorazepam 2 mg 12/30/18 21:53 12/30/18 22:32 Ativan Injection - IVPUSH 12/30/18 21:54 Not Given ONCE ONE <Almaz Zuniga - Last Filed: 01/02/19 02:58> *DC/Admit/Observation/Transfer - Attestations Scribe Attestion: 12/30/18 22:40 Documentation prepared by Fay Rowe, acting as certified medical transcriptionist for Almaz Zuniga MD. <Fay Rowe - Last Filed: 12/30/18 22:39> <Almaz Zuniga - Last Filed: 01/02/19 02:58> Diagnosis at time of Disposition: Intoxication - Discharge Dispostion Disposition: TRANSFER ACUTE CARE/OTHER HOSP Condition at time of disposition: Stable
--- NOTE | 2018-12-31 00:50 | PDOC ---
History of Present Illness - General Chief Complaint: Alcohol intoxication Stated Complaint: INTOXICATION Time Seen by Provider: 12/30/18 20:24 History Source: Patient, EMS Exam Limitations: No Limitations - History of Present Illness Initial Comments: 61 yo male pmh sig for HTN and alcoholism (drinks 1 pint a day, last drink today ) presents to the ED from [facility] because he was to intoxicated to stay for detox. Pt prescribed 60 tabs of Valium, 120 tabs percocet and oxycontin . Drug screen positive at [facility] for cocaine, benzos and oxy with an elevated alcohol level. Pt arrives to the ED intoxicated and agitated stating "nothing is wrong with me", attempts to leave ED. No signs of trauma and no current complaints. Past History - Past Medical History Allergies/Adverse Reactions: Allergies Allergy/AdvReac Type Severity Reaction Status Date / Time No Known Allergies Allergy Verified 12/30/18 20:16 Home Medications: Ambulatory Orders Enalapril Maleate 20 mg PO DAILY 04/12/18 Albuterol Sulfate Inhaler - [Ventolin HFA Inhaler -] 2 puff IH Q4H PRN #1 inhaler 04/25/18 Anemia: No Asthma: No Cancer: No Cardiac Disorders: No CVA: No COPD: No CHF: No Dementia: No Diabetes: No GI Disorders: No Disorders: No HTN: (ON MEDICATION) Hypercholesterolemia: No Kidney Stones: No Liver Disease: No Seizures: No Thyroid Disease: No - Surgical History Abdominal Surgery: No Appendectomy: No Cardiac Surgery: No Cholecystectomy: No Lung Surgery: No Neurologic Surgery: No Orthopedic Surgery: No - Reproductive History Testicular Surgery: No - Suicide/Smoking/Psychosocial Hx Smoking History: Never smoked Have you smoked in the past 12 months: No Hx Alcohol Use: Yes Drug/Substance Use Hx: No Substance Use Type: Alcohol Hx Substance Use Treatment: Yes (ONLY ALCOHOL) Review of Systems - Review of Systems Constitutional: No: Chills, Fever Respiratory: No: Shortness of Breath Cardiac (ROS): No: Chest Pain ABD/GI: No: Constipated, Diarrhea, Nausea, Vomiting : No: Burning, Dysuria, Frequency, Flank Pain Musculoskeletal: No: Back Pain Neurological: No: Headache, Numbness, Paresthesia, Weakness Psychiatric: Yes: Other (denies SI/HI) *Physical Exam - Vital Signs Last Vital Signs Temp Pulse Resp BP Pulse Ox 98.2 F 106 H 18 140/80 92 L 12/30/18 20:08 12/30/18 20:08 12/30/18 20:08 12/30/18 20:08 12/30/18 20:08 - Physical Exam General Appearance: Yes: Nourished, Appropriately Dressed. No: Apparent Distress HEENT: positive: EOMI, SHANELLE, Other (NCAT) Neck: positive: Supple Respiratory/Chest: positive: Lungs Clear, Normal Breath Sounds. negative: Chest Tender, Crackles, Rhonchi, Stridor, Wheezing Cardiovascular: positive: Regular Rhythm, S1, S2, Tachycardia. negative: Edema , JVD, Murmur Vascular Pulses: Dorsalis-Pedis (R): 4+, Doralis-Pedis (L): 4+ Gastrointestinal/Abdominal: positive: Normal Bowel Sounds, Flat, Soft. negative : Pulsatile Mass, Distended, Guarding, Rebound, Tenderness Musculoskeletal: positive: Normal Inspection Extremity: positive: Normal Capillary Refill Integumentary: positive: Normal Color, Dry, Warm Neurologic: positive: Fully Oriented, Alert, Normal Response, Motor Strength 5/5 , Other (denies CALVILLO). negative: Normal Mood/Affect (intoxicated ), Facial Droop , Confused, Disoriented Moderate Sedation - Procedure Monitoring Vital Signs: Procedure Monitoring Vital Signs Temperature 98.2 F 12/30/18 20:08 Pulse Rate 106 H 12/30/18 20:08 Respiratory Rate 18 12/30/18 20:08 Blood Pressure 140/80 12/30/18 20:08 O2 Sat by Pulse Oximetry (%) 92 L 12/30/18 20:08 ED Treatment Course - LABORATORY CBC & Chemistry Diagram: 12/30/18 20:53 12/30/18 20:53 - ADDITIONAL ORDERS Additional order review: Laboratory Results 12/30/18 12/30/18 12/30/18 21:18 21:18 20:53 Sodium 139 Potassium 4.7 Chloride 105 Carbon Dioxide 24 Anion Gap 10 BUN 23 H Creatinine 1.3 Creat Clearance w eGFR 57.10 Random Glucose 109 H Calcium 8.5 Total Bilirubin 0.5 AST 51 H ALT 36 Alkaline Phosphatase 77 Total Protein 7.4 Albumin 4.0 Urine Color Straw Urine Appearance Clear Urine pH 6.0 Ur Specific [place] 1.004 L Urine Protein Negative Urine Glucose (UA) Negative Urine Ketones Negative Urine Blood Negative Urine Nitrite Negative Urine Bilirubin Negative Urine Urobilinogen Negative Ur Leukocyte Esterase Negative Opiates Screen Negative Methadone Screen Negative Barbiturate Screen Negative Phencyclidine Screen Negative Ur Amphetamines Screen Negative MDMA (Ecstasy) Screen Negative Benzodiazepines Screen Positive A* Cocaine Screen Positive A* U Marijuana (THC) Screen Negative Alcohol, Quantitative 276.1 H 12/30/18 20:53 RBC 3.92 L MCV 95.6 MCHC 35.3 RDW 14.4 MPV 7.4 L Neutrophils % 62.8 Lymphocytes % 26.7 D Monocytes % 8.2 Eosinophils % 1.3 Basophils % 1.0 - Medications Given in the ED: ED Medications Discontinued Medications Generic Name Dose Route Start Last Admin Trade Name Sincere PRN Reason Stop Dose Admin Diphenhydramine HCl 25 mg 12/30/18 21:53 12/30/18 21:55 Benadryl Injection - IVPUSH 12/30/18 21:54 25 mg ONCE ONE Administration Haloperidol 5 mg 12/30/18 21:53 12/30/18 21:55 Haldol Injection (Fast Acting) - IM 12/30/18 21:54 5 mg ONCE ONE Administration Lorazepam 2 mg 12/30/18 21:29 12/30/18 21:32 Ativan Injection - IVPUSH 12/30/18 21:30 2 mg ONCE ONE Administration Lorazepam 2 mg 12/30/18 21:53 12/30/18 22:32 Ativan Injection - IVPUSH 12/30/18 21:54 Not Given ONCE ONE Medical Decision Making - Medical Decision Making 12/31/18 00:55 58 yo male presents from [facility] detox after being to intoxicated and testing positive for multiple controlled substances. Pt aggressive and attempts to leave ED, requires Benadryl, haldol and ativan. Pt states he is fine and wants to go back to detox. Resting comfortably, NAD, eating and drinking in the ED without issues Tox positive for Cocaine, benzos and alcohol 276 CBC and CMP WNL 12/31/18 02:19 Pt continues to rest while in the ED, will reassess and transfer back to [facility] when ready S/O to night team for further care and transfer back to [facility] *DC/Admit/Observation/Transfer Diagnosis at time of Disposition: Intoxication - Referrals - Patient Instructions - Post Discharge Activity
--- NOTE | 2018-12-31 02:26 | PDOC ---
*Physical Exam - Vital Signs Last Vital Signs Temp Pulse Resp BP Pulse Ox 98.2 F 106 H 18 140/80 92 L 12/30/18 20:08 12/30/18 20:08 12/30/18 20:08 12/30/18 20:08 12/30/18 20:08 ED Treatment Course - LABORATORY CBC & Chemistry Diagram: 12/30/18 20:53 12/30/18 20:53 - ADDITIONAL ORDERS Additional order review: Laboratory Results 12/30/18 12/30/18 12/30/18 21:18 21:18 20:53 Sodium 139 Potassium 4.7 Chloride 105 Carbon Dioxide 24 Anion Gap 10 BUN 23 H Creatinine 1.3 Creat Clearance w eGFR 57.10 Random Glucose 109 H Calcium 8.5 Total Bilirubin 0.5 AST 51 H ALT 36 Alkaline Phosphatase 77 Total Protein 7.4 Albumin 4.0 Urine Color Straw Urine Appearance Clear Urine pH 6.0 Ur Specific [place] 1.004 L Urine Protein Negative Urine Glucose (UA) Negative Urine Ketones Negative Urine Blood Negative Urine Nitrite Negative Urine Bilirubin Negative Urine Urobilinogen Negative Ur Leukocyte Esterase Negative Opiates Screen Negative Methadone Screen Negative Barbiturate Screen Negative Phencyclidine Screen Negative Ur Amphetamines Screen Negative MDMA (Ecstasy) Screen Negative Benzodiazepines Screen Positive A* Cocaine Screen Positive A* U Marijuana (THC) Screen Negative Alcohol, Quantitative 276.1 H 12/30/18 20:53 RBC 3.92 L MCV 95.6 MCHC 35.3 RDW 14.4 MPV 7.4 L Neutrophils % 62.8 Lymphocytes % 26.7 D Monocytes % 8.2 Eosinophils % 1.3 Basophils % 1.0 - Medications Given in the ED: ED Medications Discontinued Medications Generic Name Dose Route Start Last Admin Trade Name Sincere PRN Reason Stop Dose Admin Diphenhydramine HCl 25 mg 12/30/18 21:53 12/30/18 21:55 Benadryl Injection - IVPUSH 12/30/18 21:54 25 mg ONCE ONE Administration Haloperidol 5 mg 12/30/18 21:53 12/30/18 21:55 Haldol Injection (Fast Acting) - IM 12/30/18 21:54 5 mg ONCE ONE Administration Lorazepam 2 mg 12/30/18 21:29 12/30/18 21:32 Ativan Injection - IVPUSH 12/30/18 21:30 2 mg ONCE ONE Administration Lorazepam 2 mg 12/30/18 21:53 12/30/18 22:32 Ativan Injection - IVPUSH 12/30/18 21:54 Not Given ONCE ONE Medical Decision Making - Medical Decision Making 12/31/18 02:25 Pt sent from [facility] for agitation, Hx ETOH and polysubstance abuse. Pt got ativan 2 mg, haldol 5 mg, and benadryl 25 mg. Pt sleeping comfortably. CBC WBC 7.8 K/mm3 (4.0-10.0) 12/30/18 20:53 RBC 3.92 M/mm3 (4.00-5.60) L 12/30/18 20:53 Hgb 13.2 GM/dL (11.7-16.9) 12/30/18 20:53 Hct 37.5 % (35.4-49) 12/30/18 20:53 MCV 95.6 fl (80-96) 12/30/18 20:53 MCH 33.7 pg (25.7-33.7) 12/30/18 20:53 MCHC 35.3 g/dl (32.0-35.9) 12/30/18 20:53 RDW 14.4 % (11.9-15.9) 12/30/18 20:53 Plt Count 255 K/MM3 (134-434) 12/30/18 20:53 MPV 7.4 fl (7.5-11.1) L 12/30/18 20:53 Absolute Neuts (auto) 4.9 K/mm3 (1.5-8.0) 12/30/18 20:53 Neutrophils % 62.8 % (42.8-82.8) 12/30/18 20:53 Lymphocytes % 26.7 % (8-40) D 12/30/18 20:53 Monocytes % 8.2 % (3.8-10.2) 12/30/18 20:53 Eosinophils % 1.3 % (0-4.5) 12/30/18 20:53 Basophils % 1.0 % (0-2.0) 12/30/18 20:53 Nucleated RBC % 0 % (0-0) 12/30/18 20:53 CMP Sodium 139 mmol/L (136-145) 12/30/18 20:53 Potassium 4.7 mmol/L (3.5-5.1) 12/30/18 20:53 Chloride 105 mmol/L (98-107) 12/30/18 20:53 Carbon Dioxide 24 mmol/L (21-32) 12/30/18 20:53 Anion Gap 10 MMOL/L (8-16) 12/30/18 20:53 BUN 23 mg/dL (7-18) H 12/30/18 20:53 Creatinine 1.3 mg/dL (0.55-1.3) 12/30/18 20:53 Creat Clearance w eGFR 57.10 (>60) 12/30/18 20:53 Random Glucose 109 mg/dL (74-106) H 12/30/18 20:53 Calcium 8.5 mg/dL (8.5-10.1) 12/30/18 20:53 Total Bilirubin 0.5 mg/dL (0.2-1) 12/30/18 20:53 AST 51 U/L (15-37) H 12/30/18 20:53 ALT 36 U/L (13-61) 12/30/18 20:53 Alkaline Phosphatase 77 U/L (45-117) 12/30/18 20:53 Total Protein 7.4 g/dl (6.4-8.2) 12/30/18 20:53 Albumin 4.0 g/dl (3.4-5.0) 12/30/18 20:53 Urine Test Results Urine Color Straw 12/30/18 21:18 Urine Appearance Clear 12/30/18 21:18 Urine pH 6.0 (5.0-8.0) 12/30/18 21:18 Ur Specific [place] 1.004 (1.010-1.035) L 12/30/18 21:18 Urine Protein Negative (NEGATIVE) 12/30/18 21:18 Urine Glucose (UA) Negative (NEGATIVE) 12/30/18 21:18 Urine Ketones Negative (NEGATIVE) 12/30/18 21:18 Urine Blood Negative (NEGATIVE) 12/30/18 21:18 Urine Nitrite Negative (NEGATIVE) 12/30/18 21:18 Urine Bilirubin Negative (<2.0 mg/dL) 12/30/18 21:18 Ur Leukocyte Esterase Negative (NEGATIVE) 12/30/18 21:18 UDS positive for benzos and cocaine. ETOH level - 276 Pt is medically cleared, will send back to [facility] once he awakes. 12/31/18 03:44 Pt awake, alert, oriented x3, calm. Pt stated he would like to go to [facility]. Pending transfer. 12/31/18 04:29 Vital Signs Temperature 98.2 F 12/30/18 20:08 Pulse Rate 96 H 12/31/18 04:14 Respiratory Rate 18 12/31/18 04:14 Blood Pressure 143/103 H 12/31/18 04:14 O2 Sat by Pulse Oximetry (%) 97 12/31/18 04:14 Mild hypertension. Pt missed home BP medicine, Enalapril 20 mg. Enalapril 20 mg ordered. Pt discharged to [facility]. *DC/Admit/Observation/Transfer Diagnosis at time of Disposition: Intoxication - Discharge Dispostion Disposition: TRANSFER ACUTE CARE/OTHER HOSP Condition at time of disposition: Stable - Referrals - Patient Instructions - Post Discharge Activity
[2018-12-31] MEDS ORDERED: ENALAPRIL MALEATE 10 MG TABLET (FP) PO ONE (04:14)
[2018-12-31 04:15] VITALS: BP 143/103; PULSE 96
[2018-12-31] MEDS ORDERED: ENALAPRIL MALEATE 5 MG TABLET (FP) ONE (04:17)
== END 2018-12-31 04:35 | disposition short-term general hospital (02) ==
LOC: JER 20:06
PROC: 3E023NZ Introduction of Analgesics, Hypnotics, Sedatives into Muscle, Percutaneous Approach (ICD-10-PCS; principal; 2018-12-30)
PROC: 3E033GC Introduction of Other Therapeutic Substance into Peripheral Vein, Percutaneous Approach (ICD-10-PCS; 2018-12-30)
PROC: 3E033NZ Introduction of Analgesics, Hypnotics, Sedatives into Peripheral Vein, Percutaneous Approach (ICD-10-PCS; 2018-12-30)
PROC: 3E033GC Introduction of Other Therapeutic Substance into Peripheral Vein, Percutaneous Approach (ICD-10-PCS; 2018-12-30)
DX: F10.220 Alcohol dependence with intoxication, uncomplicated (principal); Y90.8 Blood alcohol level of 240 mg/100 ml or more; I10 Essential (primary) hypertension
CPT/HCPCS: 36415; 80053; 80307; 81003; 85025; 99281-25; J7030